=== PATIENT | male | born 1955 | race Caucasian/White ===

== ENCOUNTER 2018-08-17 09:15 | Inpatient (IN) | payer MEDICAID, OTHER, SELFPAY ==
[~2018-08-17] VITALS: Ht 180.3 cm; Wt 87.8 kg
[2018-08-17 09:43] VITALS: BP 154/76
[2018-08-17 10:02] VITALS: BP 148/73
[2018-08-17 10:30] VITALS: BP 127/65
--- NOTE | 2018-08-17 10:36 | ECGEPIP ---
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
[2018-08-17 10:40] LABS: HEMATOCRIT 20.9 % (42.0-52.0); MEAN CORPUSCULAR HEMOGLOBIN 36.8 pg (27.0-33.0); MEAN CORPUSCULAR HGB CONC 32.5 g/dl (32.0-36.5); PLATELET COUNT, AUTOMATED 155 10^3/uL (150-450); RED BLOOD COUNT 1.85 10^6/uL (4.30-6.10); WHITE BLOOD COUNT 4.6 10^3/uL (4.0-10.0)
[2018-08-17 10:43] LABS: HEMOGLOBIN 6.8 g/dl (13.5-17.5)
[2018-08-17 10:51] LABS: INR 1.09; PROTHROMBIN TIME 13.8 SECONDS (11.8-14.0)
[2018-08-17 11:00] VITALS: BP 155/72
[2018-08-17 11:03] LABS: ALBUMIN 3.7 GM/DL (3.2-5.2); ALT/SGPT 18 U/L (12-78); BILIRUBIN,DIRECT 0.1 MG/DL (0.0-0.2); BILIRUBIN,TOTAL 0.3 MG/DL (0.2-1.0); CK-MB VALUE MASS 2.3 NG/ML (<3.6); CPK CREATINE PHOSPHOKINASE 422 U/L (39-308); LIPASE 141 U/L (73-393); MB/CK RELATIVE INDEX 0.55 (< OR =4); TOTAL PROTEIN 7.6 GM/DL (6.4-8.2); TROPONIN I < 0.02 NG/ML (< 0.10)
[2018-08-17 11:14] LABS: ANISOCYTOSIS 2+; ATYPICAL LYMPH 4 % (0-5); BASOPHILS 1 % (0-4); LYMPHOCYTES 48 % (16-52); MONOCYTES 1 % (0-8); NEUTROPHILS 45 % (35-75); PLATELET ESTIMATE NORMAL (NORMAL); POIKILOCYTOSIS 2+
[2018-08-17 11:15] LABS: OVALOCYTES 1+; POLYCHROMASIA 1+; SCHISTOCYTES 1+
--- NOTE | 2018-08-17 11:21 | REP ---
Clinical: Lower chest and abdominal pain . Comparison: None . Technique: PA and lateral. Findings: The mediastinum and cardiac silhouette are normal. The lung rao are clear and without acute consolidation, effusion, or pneumothorax. The skeletal structures are intact and normal. Impression: 1. No acute cardiopulmonary process. Electronically Signed by Rasta Das MD 08/17/2018 11:11 A
--- NOTE | 2018-08-17 11:22 | REP ---
Clinical: Abdominal pain. Technique: AP, lateral, bilateral oblique and coned-down views of the lumbosacral spine. Findings: Moderate/early advanced multifocal degenerative disc osteophyte complexes are appreciated. There is a mild compression deformity involving L3 with approximately 35% loss of vertebral body height which is of indeterminate age. No prior examinations are available for comparison. Impression: Moderate/early advanced multifocal degenerative spondylosis. Compression deformity involving L3 of indeterminate age. Electronically Signed by Rasta Das MD 08/17/2018 11:13 A
[2018-08-17] MEDS: GASTROGRAFIN SOLUTION 30ML PO SCH ×2 (12:18→12:51)
[2018-08-17] MEDS ORDERED: ACETAMINOPHEN TAB 650MG DOSE (2X325MG) PO PRN (12:45)
--- NOTE | 2018-08-17 12:48 | HPEPDOC ---
[facility] Medical History & Physical Date of Admission Aug 17, 2018 Date of Service: Aug 17, 2018 History and Physical CHIEF COMPLAINT: generalized weakness, fatigue, weight loss HISTORY OF PRESENT ILLNESS: Pt is 63 y/o M with no known PMHx, does not see any PCP on a regular basis, not on any medications presented to ED due to progressively worsening generalized weakness and malaise. 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 Recently he has noticed that he is getting fatigued with less exertion than before. Denies any dyspnea associated with fatigue. Denies any chest pain or episode of syncope. Pt reports poor po intake for the last four weeks. Pt has lost weight sec to not eating well due to decreased appetite. He denies any change in BM, denies any episode of blood per rectum or hematemesis. Pt denies any Hx of cardiac, pulmonary or GI disease. Has not seen doctor for many years. ED Course: CBC reveals Hg 6, type and cross matched, receiving 2 unit PRBC transfusion. CXR unremarkable. LFT unremarkable. TSH Lipase WNL. BMP now resulted Cr 12 PAST MEDICAL HISTORY: 1. No known PMHx PAST SURGICAL HISTORY: 1. 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 REVIEW OF SYSTEMS: 10 point ROS completed negative except in HPI HOME MEDICATIONS: Please see below. PHYSICAL EXAMINATION: GENERAL APPEARANCE: Pt is AAOx3, lying in bed comfortable, no acute distress, blood transfusion ongoing HEENT: neck is supple EVAN EOMI no conjunctival erythema no JVD no trauma CARDIOVASCULAR: S1 S2 no murmur LUNGS: clear bilat no wheezing no rales ABDOMEN: soft NT ND MUSCULOSKELETAL: no LE edema EXTREMITIES: no edema no tenderness no cyanosis NEUROLOGICAL: motor sensory grossly intact PSYCHIATRIC: mood affect appropriate LABORATORY DATA: See below. IMAGING: Impression: 1. Area of irregular mucosal thickening involving the mid/distal sigmoid colon in the setting of diffuse diverticulosis as well as with subtle adjacent stranding and small lymph nodes. Differential diagnosis includes sequelae of diverticulitis as well as the possibility of underlying malignancy. 2. Diffusely heterogeneous mottled appearance throughout the osseous structures is concerning for underlying malignancy/metastatic disease. Moderate compression deformity at L3 is of uncertain chronicity. MICROBIOLOGY: Please see below. A/P 1-Symptomatic anemia Hg 6 no baseline available pt new to hospital, never seen a doctor Stool occult blood negative in ED s/p 2U PRBC in the ED likely sec to GI malignancy versus multiple myeloma Iron studies GI workup Ct of Abdomen reveals irregularity in sigmoid colon suspicious for malignancy 2-RUFINO Cr 12, high anion gap ABG pending hyponatremia likely in sec to prerenal etiologies dehydration versus underlying malignancy Nephrology service will evaluate IVF NS resuscitation monitor BMP SW/CM PT/OT DVT prophylaxis: Lovenox SC Vital Signs Vital Signs Date Time Temp Pulse Resp B/P (MAP) Pulse Ox O2 Delivery O2 Flow Rate FiO2 08/17/18 12:07 97.1 70 15 145/69 (94) 99 Room Air Laboratory Data Labs 24H Laboratory Tests 2 08/17/18 10:21: Nucleated Red Blood Cells % (auto) 1.3H, Neutrophils 45, Band Neutrophils 1, Lymphocytes (Manual) 48, Monocytes (Manual) 1, Basophils (Manual) 1, Atypical Lymphocytes 4, Platelet Estimate NORMAL, Polychromasia 1+, Poikilocytosis 2+, Anisocytosis 2+, Macrocytosis 2+, Ovalocytes 1+, Schistocytes 1+, Prothrombin Time 13.8, Prothromb Time International Ratio 1.09, Aspartate Amino Transf (AST/SGOT) 9, Alanine Aminotransferase (ALT/SGPT) 18, Alkaline Phosphatase 100, Total Bilirubin 0.3, Direct Bilirubin 0.1, Total Creatine Kinase 422H, Creatine Kinase MB 2.3, Creatine Kinase MB Relative Index 0.55, Troponin I < 0.02, Total Protein 7.6, Albumin 3.7, Albumin/Globulin Ratio 0.95L, Lipase 141, Thyroid Stimulating Hormone (TSH) 2.270 CBC/BMP Laboratory Tests 08/17/18 10:21 Red Blood Count 1.85 L, Mean Corpuscular Volume 113.0 H, Mean Corpuscular Hemoglobin 36.8 H, Mean Corpuscular Hemoglobin Concent 32.5, Red Cell Distribu tion Width 17.2 H Home Medications No Active Prescriptions or Reported Meds Allergies Coded Allergies: No Known Allergies (Unverified , 08/17/18) A-FIB/CHADSVASC A-FIB History Current/History of A-Fib/PAF?: No CHAYO ANDREWS MD Aug 17, 2018 12:48
[2018-08-17] MEDS ORDERED: ISOVUE-370 76% 100ML VIAL (Q9967) As Ordered ONE (13:01)
--- NOTE | 2018-08-17 14:00 | REP ---
Clinical: Constipation with weight loss and anemia. Technique: Axial contrast enhanced images from the lung bases to the pubic symphysis with coronal and sagittal re-formations using oral (per protocol) and 100 ml Isovue 370 intravenous contrast material. Findings: Lung bases demonstrate very minimal scarring/dependent change at the left base. Visualized heart and pericardium normal. Liver, spleen, pancreas, gallbladder, bilateral adrenal glands and kidneys are normal. Evaluation of the enteric system demonstrates area of focal mucosal thickening and irregularity involving the mid/distal sigmoid colon diffuse sigmoid diverticulitis. Subtle adjacent inflammatory stranding is appreciated along with small adjacent nonspecific lymph nodes. These findings may reflect sequelae of acute sigmoid diverticulitis, but colonoscopy may be warranted to exclude further pathology including malignancy. Remainder of the small and large bowel is grossly unremarkable. Pelvis demonstrates normal bladder and age appropriate prostate/seminal vesicles. No ascites. No intraperitoneal or retroperitoneal adenopathy. Abdominal aorta without aneurysm or dissection. Musculoskeletal structures demonstrate diffuse heterogeneity with mottling highly suspicious for underlying malignancy/metastatic disease. Compression deformity at L3 is noted and of uncertain chronicity. Impression: 1. Area of irregular mucosal thickening involving the mid/distal sigmoid colon in the setting of diffuse diverticulosis as well as with subtle adjacent stranding and small lymph nodes. Differential diagnosis includes sequelae of diverticulitis as well as the possibility of underlying malignancy. 2. Diffusely heterogeneous mottled appearance throughout the osseous structures is concerning for underlying malignancy/metastatic disease. Moderate compression deformity at L3 is of uncertain chronicity. Electronically Signed by Rasta Das MD 08/17/2018 01:51 P
[2018-08-17 14:45] LABS: BLOOD UREA NITROGEN 48 MG/DL (7-18); CALCIUM LEVEL 11.9 MG/DL (8.8-10.2); CARBON DIOXIDE LEVEL 15 MEQ/L (21-32); CHLORIDE LEVEL 103 MEQ/L (98-107); GLOMERULAR FILTRATION RATE 4.5 (>49); GLUCOSE, FASTING 92 MG/DL (70-100); SODIUM LEVEL 135 MEQ/L (136-145)
[2018-08-17 14:55] VITALS: BP 119/80
[2018-08-17 16:17] LABS: ABG BASE EXCESS -3.9 (-2.0-2.0); ABG HCO3 20.6 MEQ/L (22.0-26.0); ABG O2 SATURATION 98.6 % (95.0-99.0); ABG PARTIAL PRESSURE CO2 34.5 mmHg (35.0-45.0); ABG PARTIAL PRESSURE O2 121.6 mmHg (75.0-100.0); ABG STANDARD HCO3 21.2 MEQ/L (22.0-26.0); ABG TOTAL CO2 21.6 MEQ/L (23.0-31.0); ABG pH (ARTERIAL) 7.393 UNITS (7.350-7.450)
[2018-08-17] MEDS ORDERED: NS 1,000 ML IV ONE ×2 (17:00→18:00)
[2018-08-17 18:29] LABS: IONIZED CALCIUM 5.6 MG/DL (4.5-5.3)
--- NOTE | 2018-08-17 18:43 | CR ---
DATE OF CONSULTATION: 08/17/2018 REQUESTING PHYSICIAN: Dr. Pancho Mcclelland. CONSULTING PHYSICIAN: Dr. Jaramillo. REASON FOR CONSULTATION: Acute renal failure. CHIEF COMPLAINT: Patient presented to the emergency room today with progressive weakness, fatigue and weight loss. HISTORY OF PRESENT ILLNESS: Mr. Prosper Cobb is a 63-year-old male with no significant past medical history who has not seen a physician in many decades. 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 He presented to the emergency room today because of generalized weakness, progressive fatigue, shortness of breath on mild exertion, progressive weight loss over the last 3-4 months. He also reported intermittent cough with phlegm. Patient reported that he had decreased appetite and he was not eating much and he most often is constipated. He denies any nausea or vomiting. He denies any diarrhea. He denies any fevers or chills. Further evaluation in the emergency room showed that the patient was anemic with a hemoglobin of 6.8 and he was in acute renal failure with a creatinine of 12.2. Patient was admitted under the hospitalist service. He was started on a blood transfusion and nephrology service was called for further help in the management of this patient with acute renal failure. Patient needed my emergent attention. I saw the patient at the bedside today evening. Patient is awake and alert. He is not in any apparent distress. He was able to provide the history to me. PAST MEDICAL HISTORY: No known past medical history. He does not see any physician. PAST SURGICAL HISTORY: No significant past surgical history. ALLERGIES: No known drug allergies. 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 He smokes about 15 cigarettes a day for almost 40 years. He drinks alcohol about 2-3 beers a day. He denies any illicit drug abuse. REVIEW OF SYSTEMS: CONSTITUTIONAL: Patient reports progressive weakness. EYES: He denies any blurry vision or double vision. EARS, NOSE AND THROAT (ENT): He denies any dysphagia or odynophagia. CARDIOVASCULAR: He denies any chest pain or palpitation. RESPIRATORY: He does report off and on cough with phlegm. GASTROINTESTINAL (GI): He reports decreased appetite and constipation. GENITOURINARY: He reports decreased urine output. MUSCULOSKELETAL: He denies any muscle aches and pains. SKIN: He denies any rashes or ulcers. HEMATOLOGY/ONCOLOGY: He denies any easy bleeding or bruising or melena. CENTRAL NERVOUS SYSTEM (PRACTICE ASSISTANT): He denies any strokes or seizures. PSYCHIATRIC: He denies any depression or anxiety. ENDOCRINE: He denies any reports of hyperthyroidism, hypothyroidism or diabetes. All other review of systems is negative. PHYSICAL EXAMINATION: GENERAL: Patient is awake, alert, oriented times three, laying in bed in no apparent distress. VITAL SIGNS: Temperature is 97.4 degrees Fahrenheit, blood pressure 133/76, pulse is 71, respiratory rate of 16, saturating 100% on room air. HEAD AND NECK EXAM: Extraocular muscles intact. Pupils equally round and reactive to light. Conjunctival pallor is noted. Mucous membranes are moist. Neck is supple. There is no jugular venous distention (JVD). CARDIOVASCULAR: S1, S2. Regular rate. No edema of the bilateral lower extremities. RESPIRATORY: Chest is clear to auscultation bilaterally. Bilateral equal air entry. No rales or rhonchi. ABDOMEN: Soft. Positive bowel sounds. Nontender. No organomegaly. MUSCULOSKELETAL: No clubbing or cyanosis. Pulses are 2+. CENTRAL NERVOUS SYSTEM (PRACTICE ASSISTANT): No focal deficit. Power is 5/5 in all extremities. SKIN: No rashes or ulcers. LABORATORY REVIEW: Complete blood count (CBC) showed a WBC 4.6, hemoglobin 6.8, platelets of 155. INR is 1.09 Arterial blood gas (ABG) shows pH 7.39, pCO2 of 34, pO2 121, bicarbonate is 20, oxygen saturation is 98%. Basic metabolic panel (BMP) showed sodium 135, potassium is 4, chloride 103, bicarbonate is 15, BUN is 48, creatinine is 12.2, calcium is 11.9. TSH is 2.2. IMAGING STUDIES: CAT scan of the abdomen and pelvis was done with intravenous (IV) and oral contrast, which showed area of irregular mucosal thickening involving the mid and distal sigmoid colon in the setting of diffuse diverticulosis. Differential diagnosis includes sequela of diverticulitis as well as possible underlying malignancy. Chest x-ray showed no acute pathology. CURRENT INPATIENT MEDICATIONS: Patient got 2 units of packed red blood cells (PRBC) transfusion. He required 2 liters of IV normal saline bolus and he is getting normal saline at 150 mL an hour. ASSESSMENT: A 63-year-old male with no significant past medical history admitted this time with symptomatic anemia, acute renal failure, hypercalcemia and possible malignancy in the sigmoid colon. PLAN: 1. Acute renal failure: Patient came in with a creatinine of 12. He is anemic, volume depleted. I looked at the images on the CAT scan. Kidneys appear to be normal in size. There is no hydronephrosis. Continue the IV fluid hydration. I have ordered the urinalysis and urine electrolytes. Unsure whether patient is anemic because of renal failure or whether the renal failure is being caused by anemia and volume depletion. Patient has already been hydrated when I saw the patient; however, overnight I would just hydrate the patient and wait for his urine output. If patient starts making more urine, than most likely etiology of acute renal failure is dehydration. I could not appreciate any edema and I do not know whether patient has proteinuria are not because there is no urinalysis available. It is still pending. 2. Symptomatic anemia. Patient came in with severe anemia with a hemoglobin of 6.8. He has been given to be 2 units of PRBC transfusion. I am going to check the fecal occult blood testing as well. Patient has a possible mass in the sigmoid colon which needs to be worked up. 3. Hypercalcemia. Patient came in with a calcium of 11.9, which is highly suspicious for malignancy; however, the treatment at this point is IV hydration with normal saline. If calcium does not improve, then I would start the patient on calcitonin. Avoid use of bisphosphonates in this patient with acute renal failure. 4. High anion gap metabolic acidosis. It is secondary to acute renal failure. Bicarbonate level is 15. I am going to change the IV fluids to bicarbonate-containing fluids. 5. Possible mass in the sigmoid colon. Patient is severely anemic and he has a questionable mass in the sigmoid colon. Patient needs a gastrointestinal (GI) evaluation with colonoscopy and biopsy. Thank you for involving me involving me in the care of this patient. I shall be happy to follow the patient along with you tomorrow morning. KEYLA
[2018-08-17 18:44] LABS: FERRITIN 877 NG/ML (26-388); IRON (FE) 131 UG/DL (65-175); PERCENT SATURATION 77.5 % (19.7-50.0); PHOSPHORUS LEVEL 7.1 MG/DL (2.5-4.9); TOTAL IRON BINDING CAPACITY 169 UG/DL (250-450)
[2018-08-17] MEDS ORDERED: NS 1,000 ML IV SCH (19:00)
[2018-08-17] MEDS: SODIUM BICARBONATE 75 MEQ in NS 0.45% 1,000 ML IV SCH (19:56)
[2018-08-17 21:21] VITALS: BP 138/66
[2018-08-17 21:50] LABS: APPEARANCE, URINE CLEAR (CLEAR); BACTERIA, URINE AUTO NEGATIVE (NEGATIVE); BILIRUBIN, URINE AUTO NEGATIVE (NEGATIVE); BLOOD, URINE BLOOD 2+ (NEGATIVE); COLOR, URINE STRAW (YELLOW); GLUCOSE, URINE (UA) AUTO NEGATIVE (NEGATIVE); KETONE, URINE AUTO NEGATIVE (NEGATIVE); LEUKOCYTE ESTERASE, URINE AUTO NEGATIVE (NEGATIVE); MUCUS, URINE SMALL (NEGATIVE); NITRITE, URINE AUTO NEGATIVE (NEGATIVE); PROTEIN, URINE AUTO 1+ mg/dL (NEGATIVE); RBC, URINE AUTO 7 /HPF (0-3); SPECIFIC GRAVITY URINE AUTO 1.009 (1.002-1.035); SQUAMOUS EPITHELIAL CELL UR AU 0 /HPF (0-6); UROBILINOGEN, URINE AUTO 0.2 mg/dL (0.0-2.0); WBC, URINE AUTO 1 /HPF (0-3)
[2018-08-17 22:10] LABS: CHLORIDE,RANDOM URINE 29 MEQ/L; CREATININE,RANDOM URINE 45.1 MG/DL; POTASSIUM RANDOM URINE 5.2 MEQ/L; SODIUM,RANDOM URINE 38 MEQ/L
[2018-08-17 22:56] LABS: TOTAL PROTEIN 5.8 GM/DL (6.4-8.2)
[2018-08-18] MEDS: SODIUM BICARBONATE 75 MEQ in NS 0.45% 1,000 ML IV SCH (05:30)
[2018-08-18 06:39] LABS: HEMATOCRIT 21.6 % (42.0-52.0); HEMOGLOBIN 7.3 g/dl (13.5-17.5); MEAN CORPUSCULAR HEMOGLOBIN 34.3 pg (27.0-33.0); MEAN CORPUSCULAR HGB CONC 33.8 g/dl (32.0-36.5); MEAN CORPUSCULAR VOLUME 101.4 fl (80.0-96.0); PLATELET COUNT, AUTOMATED 119 10^3/uL (150-450); RED BLOOD COUNT 2.13 10^6/uL (4.30-6.10); WHITE BLOOD COUNT 2.8 10^3/uL (4.0-10.0)
[2018-08-18 06:45] VITALS: BP 109/62
[2018-08-18 07:02] LABS: ANISOCYTOSIS 2+; BASOPHILS 3 % (0-4); EOSINOPHILS 3 % (0-5); LYMPHOCYTES 54 % (16-52); MONOCYTES 2 % (0-8); NEUTROPHILS 38 % (35-75); OVALOCYTES 1+; PLATELET ESTIMATE NORMAL (NORMAL)
[2018-08-18 07:03] LABS: TEAR DROP CELLS 1+
[2018-08-18 07:15] LABS: ALBUMIN 2.8 GM/DL (3.2-5.2); ALT/SGPT 15 U/L (12-78); BILIRUBIN,TOTAL 0.2 MG/DL (0.2-1.0); BLOOD UREA NITROGEN 48 MG/DL (7-18); CALCIUM LEVEL 10.9 MG/DL (8.8-10.2); CARBON DIOXIDE LEVEL 19 MEQ/L (21-32); CHLORIDE LEVEL 110 MEQ/L (98-107); GLOMERULAR FILTRATION RATE 4.9 (>49); GLUCOSE, FASTING 82 MG/DL (70-100); NT-PRO BNP 4919 PG/ML (<125); POTASSIUM SERUM 4.2 MEQ/L (3.5-5.1); SODIUM LEVEL 140 MEQ/L (136-145); TOTAL PROTEIN 5.5 GM/DL (6.4-8.2)
[2018-08-18 08:00] VITALS: BP 104/58
[2018-08-18 08:06] LABS: HEPATITIS B SURFACE ANTIBODY NEGATIVE (POSITIVE)
[2018-08-18 08:07] LABS: VITAMIN B12 LEVEL 1025 PG/ML (247-911)
[2018-08-18 08:17] LABS: HEPATITIS B SURFACE ANTIGEN NEGATIVE (NEGATIVE)
[2018-08-18 08:45] LABS: HEPATITIS C VIRUS ABY INDEX 0.1 INDEX (<0.8)
[2018-08-18 08:57] LABS: CHOLESTEROL LEVEL 92 MG/DL (<200); CHOLESTEROL RISK RATIO 1.559 (<5); HDL CHOLESTEROL 59 MG/DL (>40); HEPATITIS B CORE ANTIBODY IGM NEGATIVE (NEGATIVE); LDL CHOLESTEROL 14 MG/DL (<100); NON-HDL-C 33 MG/DL; TRIGLYCERIDES LEVEL 97 MG/DL (<150)
[2018-08-18 10:13] LABS: HEMOGLOBIN A1c 5.6 %
[2018-08-18 12:00] VITALS: BP 116/63
[2018-08-18] MEDS ORDERED: LIDOCAINE 1% SDV INJ 30 ML VIAL As Ordered ONE (13:17)
[2018-08-18] MEDS ORDERED: HEPARIN SOD (PORCINE) 5000 UNITS/ML VIAL As Ordered ONE ×2 (13:17→14:29)
[2018-08-18] MEDS ORDERED: BUPIVACAINE HCL 0.5% 30 ML VIAL As Ordered ONE (13:18)
[2018-08-18] MEDS ORDERED: MIDAZOLAM INJ 2 MG/2 ML VIAL (J2250) As Ordered ONE (13:22)
[2018-08-18] MEDS ORDERED: PROPOFOL 200 MG/20 ML VIAL As Ordered ONE (13:22)
[2018-08-18] MEDS ORDERED: LIDOCAINE 2% INJ 100 MG/5 ML SDV (FOR ANES.) As Ordered ONE (13:22)
[2018-08-18] MEDS ORDERED: fentaNYL 100 MCG/2 ML INJECTION (J3010) As Ordered ONE (13:23)
[2018-08-18 13:43] LABS: COMPLEMENT C3 65 MG/DL (90-180); COMPLEMENT C4 19 MG/DL (10-40)
[2018-08-18] MEDS ORDERED: ONDANSETRON 4MG/2ML VIAL (J2405) IV PRN (15:00)
[2018-08-18] MEDS ORDERED: NS 1,000 ML IV SCH (15:00)
[2018-08-18] MEDS ORDERED: fentaNYL 100 MCG/2 ML INJECTION (J3010) IV PRN (15:00)
--- NOTE | 2018-08-18 15:16 | IPN ---
DATE: 08/18/2018 SUBJECTIVE: The patient was seen and examined at the bedside this morning. He is afebrile, hemodynamically stable. He continues to be on IV fluid hydration. He does not have much urine output. There is no significant improvement in the renal function. Creatinine is still 11.2 at this time. Hypocalcemia is slowly getting better most of the serology and labs are pending. The patient's brothers were also present at the bedside. OBJECTIVE: VITAL SIGNS: Temperature is 97.9 degrees Fahrenheit, blood pressure 104/58, pulse is 70, respiratory of 18, saturating 97% on room air. Intake and output: Urine output is not recorded. The patient had five void so far since overnight. Weight on the bed scale is not available. PHYSICAL EXAMINATION: GENERAL: The patient is awake, alert, oriented, oriented times three, laying in bed in no apparent distress. HEAD AND NECK EXAM: Pupils are equally round and reactive to light. Conjunctival pallor was noted. Mucous membranes are moist. Neck is supple. There is mildly elevated jugular venous distention (JVD). CARDIOVASCULAR: S1, S2 regular rate. No edema of the bilateral lower extremities. RESPIRATORY: Chest is clear to auscultation bilaterally. Bilateral equal good air entry. No rales or rhonchi. ABDOMEN: Soft. Positive bowel sounds. Nontender. No organomegaly. MUSCULOSKELETAL: No clubbing or cyanosis. Pulses are 2+. CENTRAL NERVOUS SYSTEM (INSTRUMENT ADJUSTER): No vocal deficit. Power is 5/5 in all extremities. SKIN: No rashes or ulcers. LABORATORY DATA: CBC showed WBC 2.8, hemoglobin 7.3, platelets of 119. Urinalysis showed 1+, protein 2+, blood. BMP showed sodium 140, potassium 4.2, chloride 110, bicarb 19, BUN 48, creatinine is 11.2, hemoglobin A1c is 5.6, calcium is 10.9 now. It was 11.9 yesterday. Iron level 131, TIBC 169, transferrin saturation is 77%, ferritin is 877, Pro-BNP is 4919, albumin is 2.8, hepatitis B serology is negative, hepatitis C is negative. CURRENT INPATIENT MEDICATIONS: The patient's medications were all reviewed by me. He was getting IV bicarb fluids, which I have stopped this morning. No other change in the medications today as compared with yesterday. ASSESSMENT/PLAN: 1. Acute renal failure: The patient's urine output is not recorded. Most likely he is oliguric. Patient has a mild proteinuria and hematuria on urinalysis. I have ordered all the proteinuria workup including RAMOS, ANCA and double-stranded DNA Ab, glomerular basement membrane antibodies, syphilis serology, Lyme titers, hepatitis B and C, SPEP and UPEP. If the results are inconclusive, patient might need a renal biopsy next week on Tuesday or Tuesday. There are no signs of renal recovery I have requested the vascular surgery to place a tunneled dialysis catheter so the patient can be dialyzed. 2. High anion gap metabolic acidosis: It is secondary to renal failure. The patient was started on IV bicarb fluids yesterday. Serum bicarb level has improved to 19 IV fluids have been stopped because the patient has a high BMP. 3. Symptomatic anemia: The patient got 2 units of packed red blood cells (PRBC) transfusion. Hemoglobin is still low at 7.3. The patient will be given a dose of Aranesp with dialysis tomorrow and he will get 1 more unit of PRBC transfusion in the morning, iron levels are adequate. 4. Hypercalcemia: The patient came in with a calcium of 11.9. He got IV fluid hydration, ionized calcium yesterday was. High serum calcium is improved to 10.9 today. I am stopping the IV fluids because of risk of fluid overload. 5. Hyperphosphatemia: It is secondary to renal failure. Phosphorus level with improve after starting dialysis. I am not starting the patient on phosphorus binders. His appetite is already low. 6. Questionable mass in the sigmoid colon The patient came in with severe anemia. However, his iron levels are adequate. The patient needs colonoscopy to rule out the possibility of malignancy. However, I do not think that CA colon has caused this patient's renal failure. MTDD
[2018-08-18 15:30] VITALS: BP 116/64
[2018-08-18 16:00] VITALS: BP 119/65
--- NOTE | 2018-08-18 16:22 | REP ---
Clinical: Perma-Cath placement. Technique: Intraoperative fluoroscopic imaging using C-arm technique. Findings: The patient is status post double lumen Perma-Cath placement in satisfactory position. Total fluoroscopic time 4 seconds. Impression: Satisfactory double lumen dialysis catheter placement. Electronically Signed by Rasta Das MD 08/18/2018 04:14 P
--- NOTE | 2018-08-18 17:33 | ROOPDOC ---
[facility] Report Of Operation Report of Operation DATE OF PROCEDURE: 08/18/2018 PREPROCEDURE DIAGNOSES: End-stage renal disease requiring access for renal replacement therapy. POSTPROCEDURE DIAGNOSES: End-stage renal disease requiring access for renal replacement therapy. PROCEDURE: Ultrasound guided right internal jugular vein cannulation. Fluoroscopic guided right internal jugular vein 19 cm tip to cuff tunneled central venous catheter insertion. ATTENDING SURGEON: DR. Lucio Martinez M.D. ZIPPER REPAIRER: None INDICATION:Patient is an 63-year-old male who presented to the emergency room and was found to have renal failure who requires access for renal replacement therapy. Patient will undergo ultrasound and fluoroscopic guided placement of a right internal jugular vein tunneled central venous catheter. The procedure was described and explained to the patient in detail including drawing of pictures demonstrating the procedure and anatomy. Risks, benefits and alternative tr eatment options were discussed with the patient. Alternative treatment options included but were not limited to no intervention. Benefits included but were not limited to access for hemodialysis until permanent access for renal replacement therapy is created. Risks included, but were not limited to infection, bleeding, pneumothorax, hemothorax, cannulation site deep venous thrombosis, possible need for open surgical intervention, allergic reaction or complication from prepping and draping materials, possible need for transfusion of blood products, anesthetic complications, cerebrovascular accident, myocardial infarction, pulmonary embolus, deep venous thrombosis, loss of limb, loss of life, poor satisfaction and poor outcome. Risks of not performing the procedure included but were not limited to inability to obtain renal replacement therapy via hemodialysis and . The patient's questions were answered. The patient voices understanding of these risks, benefits and alternative treatment options. The patient voices acceptance of the risks associated with the procedure and agrees to proceed with an ultrasound and fluoroscopic guided right internal jugular vein tunneled central venous catheter insertion. There were no promises or guarantees made to the patient regarding the outcome or results of the procedure. ANESTHESIA: Local MAC with 20 mL of 1% lidocaine mixed with 0.5% Marcaine. EBL: 20 ml. IVF: 150 ml. FLUORO TIME: 0.1 minutes. CONTRAST: None. COMPLICATIONS: None. DRAINS: None. SPECIMENS: None. IMPLANTS: Right internal jugular vein tunneled central venous catheter with use of a 19 cm tip to cuff [place] hemodialysis catheter. DESCRIPTION OF PROCEDURE: Patient was taken to the angiography suite, placed supine on the angiography room table and then prepped and draped in a standard surgical fashion. A timeout was conducted by myself and the team members in the room confirming the correct patient, procedure and laterality. Ultrasound guidance was used to cannulate the right internal jugular vein using a micropuncture needle after anesthetizing the overlying skin and subcutaneous tissue with 1% lidocaine mixed with 0.5% Marcaine. The cannulation of the right internal jugular vein was performed with real-time concurrent visualization of the entry of the micropuncture needle into the right internal jugular vein with a hardcopy image preserved. The ultrasound showed the right internal jugular vein to be widely patent, easily compressible and free of thrombus. The micropuncture wire was advanced through the micropuncture needle which was upsized to a micropuncture sheath. An Amplatz wire was advanced through the micr opuncture sheath which was then used to sequentially dilate the right internal jugular vein under fluoroscopic guidance. An introducer sheath was then placed over the Amplatz wire and the wire was removed. The catheter was tunneled through a puncture wound in the right chest after anesthetizing the overlying skin and subcutaneous tissue with 1% lidocaine mixed with 0.5% Marcaine and brought out through a puncture wound at the right internal jugular vein entry site. The catheter was then advanced through the introducer sheath which had been positioned under fluoroscopic guidance. The catheter was positioned under fluoroscopic guidance with the tip in the superior vena cava right atrial junction. Both ports of the catheter were aspirated, noted to aspirate easily and then flushed with heparinized saline. The catheter was secured to the right anterior chest wall using #2-0 Prolene suture after anesthetizing the overlying skin and subcutaneous tissue with 1% lidocaine mixed with 0.5% Marcaine. The puncture wound in the right neck was closed using #4-0 Monocryl in inverted interrupted fashion. Steri-Strips and dressings were applied. The patient tolerated the procedure well. All instrument, sponge and needle counts were correct at the end of the case. There were no complications. Dr. Martinez was present for and directed the entire case. Patient was transferred to the recovery area and subsequently to the recovery room and subsequently to the floor in stable condition. The tunneled central venous catheter is stable for use for hemodialysis access. RADIOLOGIC SUPERVISION AND INTERPRETATION: The initial ultrasound showed the right internal jugular vein to be easily compressible, widely patent and free of thrombus. Ultrasound was used to guide cannulation of the right internal jugular vein with real-time concurrent visualization of the entry of the needle into the right internal jugular vein with a hardcopy image preserved. Fluoroscopic guidance was then used to sequentially dilate the right internal jugular vein, place an introducer sheath and position the catheter with the tip in the superior vena cava/right atrial junction. Final fluoroscopic image showed the catheter to be in good position and good alignment with no pneumo- or hemothorax noted with the tip in the superior vena cava/right atrial junction. The tunneled central venous catheter is stable for use for hemodialysis access. Parker Martinez MD Aug 18, 2018 17:33
[2018-08-18 21:30] VITALS: BP 101/56
[2018-08-18 21:43] LABS: PTH INTACT 17.3 PG/ML (18.5-88.0)
[2018-08-19 01:56] VITALS: BP 111/64
[2018-08-19 06:00] VITALS: BP 112/63
--- NOTE | 2018-08-19 06:27 | IPNPDOC ---
Text Note Date of Service The patient was seen on 08/18/18. NOTE Pt denies any complaints. No dizziness no palpitations. Pt in no acute distress. Denies any rectal bleeding. general surgery consulted for sigmoid mass. PHE PHYSICAL EXAMINATION: GENERAL APPEARANCE: Pt is AAOx3, lying in bed comfortable, no acute distress, blood transfusion ongoing HEENT: neck is supple EVAN EOMI no conjunctival erythema no JVD no trauma CARDIOVASCULAR: S1 S2 no murmur LUNGS: clear bilat no wheezing no rales ABDOMEN: soft NT ND MUSCULOSKELETAL: no LE edema EXTREMITIES: no edema no tenderness no cyanosis NEUROLOGICAL: motor sensory grossly intact PSYCHIATRIC: mood affect appropriate LABORATORY DATA: See below. Vital Signs Date Time Temp Pulse Resp B/P (MAP) Pulse Ox O2 Delivery O2 Flow Rate FiO2 08/19/18 01:56 97.7 77 18 111/64 (80) 97 08/18/18 21:30 98.8 83 12 101/56 (71) 93 08/18/18 16:00 97.9 67 18 119/65 (83) 99 08/18/18 15:30 97.7 68 18 116/64 (81) 99 08/18/18 14:50 69 16 108/59 (75) 98 08/18/18 14:45 72 14 111/62 (78) 97 08/18/18 14:42 97.4 74 14 115/63 (80) 97 08/18/18 12:00 98.3 74 20 116/63 (80) 96 08/18/18 08:00 97.9 70 18 104/58 (73) 97 08/18/18 06:45 98.0 69 20 109/62 (78) 97 08/18/18 06:44 98.0 Intake & Output 08/19/18 05:59 Intake Total 2125 ml Output Total 800 ml Balance 1325 ml Laboratory Tests 08/18/18 13:02: Myeloperoxidase Antibody [Pending], Anti-Double Strand DNA (Crithidia) [Pendi ng], Glomerular Basement Membrane IgG Ab [Pending], Glomerular Base Membrane IgG (IFA) [Pending], Complement C3 65L, Complement C4 19, Syphilis Serology NONREACTIVE, Lyme Disease IgG/IgM Antibodies [Pending] Microbiology 08/18/18 Stool Occult Blood (SHREYAS) - Final, Complete IMAGING: Impression: 1. Area of irregular mucosal thickening involving the mid/distal sigmoid colon in the setting of diffuse diverticulosis as well as with subtle adjacent stranding and small lymph nodes. Differential diagnosis includes sequelae of diverticulitis as well as the possibility of underlying malignancy. 2. Diffusely heterogeneous mottled appearance throughout the osseous structures is concerning for underlying malignancy/metastatic disease. Moderate compression deformity at L3 is of uncertain chronicity. MICROBIOLOGY: Please see below. A/P 1-Symptomatic anemia Hg 6 no baseline available pt new to hospital, never seen a doctor Stool occult blood negative in ED s/p 2U PRBC in the ED likely sec to GI malignancy versus multiple myeloma Iron studies GI workup Ct of Abdomen reveals irregularity in sigmoid colon suspicious for malignancy 2-RUFINO Cr 12, high anion gap ABG metabolic acidosis hyponatremia likely sec to prerenal etiologies dehydration versus underlying malignancy leading to anemia Nephrology service recommendations appreciated IVF NS resuscitation monitor BMP 3-Sigmoid mass Surgery on board for colonoscopy SW/CM PT/OT DVT prophylaxis: Lovenox SC VS,Fishbone, I+O VS, Fishbone, I+O Vital Signs Date Time Temp Pulse Resp B/P (MAP) Pulse Ox O2 Delivery O2 Flow Rate FiO2 08/19/18 01:56 97.7 77 18 111/64 (80) 97 08/17/18 14:32 Room Air I&O- Last 24 Hours up to 6 AM 08/19/18 05:59 Intake Total 2125 ml Output Total 800 ml Balance 1325 ml CHAYO ANDREWS MD Aug 19, 2018 06:27
[2018-08-19] MEDS: NS 1,000 ML IV SCH ×2 (06:42→16:34)
[2018-08-19] MEDS ORDERED: DARBEPOETIN 100 MCG/0.5 ML *DIALYSIS* SYRINGE (J0882) IV SCH (06:45)
[2018-08-19 07:19] LABS: HEMATOCRIT 22.5 % (42.0-52.0); HEMOGLOBIN 7.5 g/dl (13.5-17.5); MEAN CORPUSCULAR HEMOGLOBIN 35.2 pg (27.0-33.0); MEAN CORPUSCULAR HGB CONC 33.3 g/dl (32.0-36.5); MEAN CORPUSCULAR VOLUME 105.6 fl (80.0-96.0); PLATELET COUNT, AUTOMATED 108 10^3/uL (150-450); RED BLOOD COUNT 2.13 10^6/uL (4.30-6.10); WHITE BLOOD COUNT 2.8 10^3/uL (4.0-10.0)
[2018-08-19 07:40] LABS: ALBUMIN 2.8 GM/DL (3.2-5.2); CALCIUM LEVEL 10.4 MG/DL (8.8-10.2); PHOSPHORUS LEVEL 7.1 MG/DL (2.5-4.9); POTASSIUM SERUM 3.9 MEQ/L (3.5-5.1)
[2018-08-19 08:05] LABS: EOSINOPHILS 3 % (0-5); LYMPHOCYTES 49 % (16-52); NEUTROPHILS 43 % (35-75); PLATELET ESTIMATE DECREASED (NORMAL)
[2018-08-19 08:06] LABS: OVALOCYTES 1+; POIKILOCYTOSIS 2+; TEAR DROP CELLS 1+
[2018-08-19 08:07] LABS: ANISOCYTOSIS 3+
[2018-08-19] MEDS: ENOXAPARIN 30 MG/0.3 ML SYR (J1650) SC SCH (09:15)
[2018-08-19 14:00] VITALS: BP 128/73
--- NOTE | 2018-08-19 14:38 | CR ---
DATE OF CONSULTATION: 08/19/2018 REASON FOR CONSULTATION: Anemia and possible colon abnormality by CT. HISTORY: Patient is a pleasant 63-year-old man who was admitted on 08/17/2018 after presenting with generalized weakness and malaise. He reports that he has been getting fatigued earlier than previously. He has not had any shortness of breath. He has not noticed any rectal bleeding. He does note that he has had some hard stools recently, but denies any melena or hematochezia. In the emergency department, he was found to be quite anemic with a hemoglobin of 7. His hematocrit was 21%. Chemistries revealed a creatinine markedly elevated to 12.2, with a BUN of 48. A CT scan of the abdomen and pelvis was done, which was interpreted by radiology as suggesting an area of irregular mucosal thickening in the mid to distal sigmoid colon with some diverticulosis. The possibility of an underlying malignancy was raised. Since admission, the patient has had an implanted dialysis catheter placed by Dr. Martinez. He was seen in consultation by Dr. Jaramillo. The patient apparently has not been seen by a physician in many years. MEDICATIONS ON ADMISSION: None. ALLERGIES: None reported. SURGICAL HISTORY: Negative. MEDICAL HISTORY: Previously is significant for smoking 1/4 pack of cigarettes per day. He had suffered a fractured collar bone in his teen years. FAMILY HISTORY: Noncontributory. PHYSICAL EXAMINATION: Reveals a pleasant man lying quietly on the hospital bed. He is alert and oriented. He is not having any pain currently. Abdomen is soft and nontender without appreciable mass. Laboratory studies today show a sodium of 141, potassium 3.9, chloride 109, CO2 of 20, BUN of 47 and a creatinine of 11. After 2 units of packed red blood cells and he received another 2 units after this test, show a white count of 2.8, hemoglobin of 8, hematocrit of 22 and a platelet count of 108,000. The patient apparently underwent hemodialysis today. IMAGING STUDIES: I reviewed patient's CT scan. I do not identify an area that concerns me, particularly regarding thickening of the bowel wall or any signs of obstruction. IMPRESSION: 1. Chronic renal failure. 2. Marked anemia, which I think is most likely related to his chronic renal failure. 3. Abnormal CT scan, but without any signs or symptoms previously of any rectal bleeding or abdominal pain. PLAN: It certainly may be prudent for the patient to have a colonoscopy at some point, but I do not believe that point is right now. He can continue with dialysis in management of his renal failure per the shade bander and receive treatment for his marked anemia. When his medical issues are stable, a colonoscopy can certainly be performed to rule out any sort of underlying colonic pathology. He does report that he has not had any prior colon cancer screening study.
--- NOTE | 2018-08-19 15:16 | IPNPDOC ---
Text Note Date of Service The patient was seen on 08/19/18. NOTE Pt was seen and examined at bedside. Pt is in no acute distress. Pt denies any change in BM, melena or rectal bleeding. Denies any bone pain. Denies any dyspnea or tachypnea. The clinical findings and plan of care was discussed with pt and family, his brother at bedside. PHYSICAL EXAMINATION: GENERAL APPEARANCE: Pt is AAOx3, lying in bed comfortable, no acute distress, blood transfusion ongoing HEENT: neck is supple EVAN EOMI no conjunctival erythema no JVD no trauma CARDIOVASCULAR: S1 S2 no murmur LUNGS: clear bilat no wheezing no rales ABDOMEN: soft NT ND MUSCULOSKELETAL: no LE edema EXTREMITIES: no edema no tenderness no cyanosis NEUROLOGICAL: motor sensory grossly intact PSYCHIATRIC: mood affect appropriate LABORATORY DATA: See below. Vital Signs Date Time Temp Pulse Resp B/P (MAP) Pulse Ox O2 Delivery O2 Flow Rate FiO2 08/19/18 06:00 98.0 80 12 112/63 (79) 97 08/19/18 01:56 97.7 77 18 111/64 (80) 97 08/18/18 21:30 98.8 83 12 101/56 (71) 93 08/18/18 16:00 97.9 67 18 119/65 (83) 99 08/18/18 15:30 97.7 68 18 116/64 (81) 99 Intake & Output 08/19/18 06:00 Intake Total 2205 ml Output Total 1400 ml Balance 805 ml Laboratory Tests 08/19/18 06:43: White Blood Count 2.8L, Red Blood Count 2.13L, Hemoglobin 7.5L, Hematocrit 22.5L, Mean Corpuscular Volume 105.6H, Mean Corpuscular Hemoglobin 35.2H, Mean Corpuscular Hemoglobin Concent 33.3, Red Cell Distribution Width 20.5H, Platelet Count 108L, Nucleated Red Blood Cells % (auto) 0.7H, Neutrophils 43, Band Neutrophils 5, Lymphocytes (Manual) 49, Eosinophils (Manual) 3, Platelet Estimate DECREASED, Poikilocytosis 2+, Anisocytosis 3+, Tear Drop Cells 1+, Ovalocytes 1+, Acanthocytes 1+, Blood Urea Nitrogen 47H, Creatinine 11.00*H, Sod ium Level 141, Potassium Level 3.9, Chloride Level 109H, Carbon Dioxide Level 20L, Anion Gap 12, Glomerular Filtration Rate 5.0L, Fasting Glucose 93, Calcium Level 10.4H, Phosphorus Level 7.1H, Albumin 2.8L Microbiology 08/18/18 Stool Occult Blood (SHREYAS) - Final, Complete Current Medications Medications (Trade) Dose Ordered Sig/Maru Route PRN Reason Start Time Stop Time Status Last Admin Dose Admin Enoxaparin Sodium (Lovenox) 30 mg DAILY SC 08/19/18 09:00 08/19/18 09:15 30 MG Sodium Chloride 1,000 ml @ 100 mls/hr Q10H IV 08/19/18 06:30 08/19/18 06:42 100 MLS/HR IMAGING: Impression: 1. Area of irregular mucosal thickening involving the mid/distal sigmoid colon in the setting of diffuse diverticulosis as well as with subtle adjacent stranding and small lymph nodes. Differential diagnosis includes sequelae of diverticulitis as well as the possibility of underlying malignancy. 2. Diffusely heterogeneous mottled appearance throughout the osseous structures is concerning for underlying malignancy/metastatic disease. Moderate compression deformity at L3 is of uncertain chronicity. MICROBIOLOGY: Please see below. A/P 1-Symptomatic anemia Hg 6 no baseline available pt new to hospital, never seen a doctor Stool occult blood negative in ED s/p 2U PRBC in the ED, 2U today on 08/19/18 likely sec to GI malignancy versus multiple myeloma versus undiagnosed progressive CKD Iron studies GI workup Ct of Abdomen reveals irregularity in sigmoid colon suspicious for malignancy, Surgery consult rules out presence of any colonic mass 2-RUFINO Cr 12, high anion gap ABG metabolic acidosis hyponatremia resolved likely sec to prerenal etiologies including dehydration versus intrinsic kidney pathologies Nephrology service recommendations appreciated IVF NS resuscitation Cont monitor BMP Pt s/p dialysis catheter placement, plan for HD today 3-Sigmoid mass Surgery service is consulted and input is appreciated 4-Electrolyte abnormality sec to RUFINO monitor BMP Ca Phos SW/CM PT/OT DVT prophylaxis: Lovenox SC VS,Fishbone, I+O VS, Fishbone, I+O Laboratory Tests 08/19/18 06:43 Red Blood Count 2.13 L, Mean Corpuscular Volume 105.6 H, Mean Corpuscular Hemoglobin 35.2 H, Mean Corpuscular Hemoglobin Concent 33.3, Red Cell Distribution Width 20.5 H, Anion Gap 12 Vital Signs Date Time Temp Pulse Resp B/P (MAP) Pulse Ox O2 Delivery O2 Flow Rate FiO2 08/19/18 06:00 98.0 80 12 112/63 (79) 97 08/17/18 14:32 Room Air I&O- Last 24 Hours up to 6 AM 08/19/18 06:00 Intake Total 2205 ml Output Total 1400 ml Balance 805 ml CHAYO ANDREWS MD Aug 19, 2018 15:16
[2018-08-19 18:41] LABS: CREATININE 24 HOUR, URINE 1060.2 MG/24HR (950-2500); CREATININE, URINE 55.8 MG/DL; TOTAL PROTEIN 24 HOUR URINE 8825.5 MG/24HR (50-150)
[2018-08-19 18:43] LABS: URINE TOTAL PROTEIN 464.5 MG/DL (0-12)
--- NOTE | 2018-08-19 20:13 | IPN ---
DATE: 08/19/2018 Mr. Cobb is seen this afternoon on his bedside. He was admitted with advanced renal failure and severe pneumonia. He had a right internal jugular vein hemodialysis catheter placed yesterday by Dr. Martinez. He had a CAT scan of abdomen and pelvis done on admission, which revealed a normal-sized kidneys without any hydronephrosis and abnormal mucosal thickening in the sigmoid colon for which he has been seen by Dr. Nagy and an elective colonoscopy has been recommended. The patient has been transfused two units of packed red blood cells prior to dialysis today. His serum creatinine was 12 on admission and BUN was 48. His kidney function did not improve with intravenous (IV) fluid hydration. A decision for dialysis was made and patient had his first hemodialysis today. He received two more units of packed red blood cells during dialysis today. At this time, patient is feeling better and denies any dyspnea, chest pain, nausea or vomiting. He denies any rectal bleeding or black colored stool in the history. PHYSICAL EXAMINATION: Temperature is 99 degrees Fahrenheit, heart rate 74 per minute and respiratory rate 18 per minute. Blood pressure 128/73 mmHg and oxygen saturation 97% on room air. His head is atraumatic. Ears, nose and throat are unremarkable. Oral mucosa is moist and healthy. Neck is supple and without jugular venous distention (JVD) or thyroid enlargement. A dialysis catheter is present in right internal jugular vein without any signs of infection or bleeding at the exit site. His heart sounds are regular. Lungs clear to auscultation. Abdomen is soft and nontender and without a palpable organomegaly. Bowel sounds are normal. Extremities have no cyanosis or clubbing. Neurologically, he is awake, alert and oriented times three. Today's labs show sodium 141, potassium 3.9, CO2 20, BUN 47 and creatinine 11.0. Calcium level is 10.4 and phosphorus 7.1. Hemoglobin 7.5 and hematocrit 22.5. WBC count 2.8 and platelets 108,000. Urinalysis showed 1+ protein and 2+ blood. PROBLEMS: 1. Renal failure, most likely mostly chronic. Patient had his first hemodialysis this morning, which he tolerated very well. We will plan his next dialysis on Tuesday or Tuesday. At present, there is no emergent need for further dialysis tomorrow. 2. Metabolic acidosis. His acidosis had already improved and today's dialysis is likely to have corrected it completely. His chemistry will be checked again tomorrow morning. 3. Anemia. Patient had severe anemia on admission, without any iron deficiency. I do not feel that he has anemia due to colon mass. His anemia is most likely to be related to advanced renal failure in view of normal iron studies. Patient will receive Aranesp with dialysis. 4. Etiology of renal failure. At this point, no obvious etiology known. He does have serum protein electrophoresis pending, which was sent in view of hypercalcemia and mild proteinuria. I have discussed with the patient and his son on the bedside about potential need for a diagnostic kidney biopsy. Once he is well dialyzed and risk of bleeding is minimized, then we will consider a diagnostic kidney biopsy next week. 5. Possible colon mass. The patient seems to have normal iron studies and I suspect that gastrointestinal (GI) blood loss is not the cause of his anemia. He should certainly have a colonoscopy at some point to rule out any possibility of malignancy. 6. Pancytopenia. Pt. seems to have pancytopenia and will need to be monitored closely. I do not feel that renal failure is the cause of his pancytopenia. MTDD
[2018-08-19 22:00] VITALS: BP 121/61
[2018-08-20] VITALS (8 sets, daily range): BP systolic 114–120; BP diastolic 60–66
[2018-08-20 06:58] LABS: HEMATOCRIT 25.4 % (42.0-52.0); HEMOGLOBIN 8.7 g/dl (13.5-17.5); MEAN CORPUSCULAR HEMOGLOBIN 34.5 pg (27.0-33.0); MEAN CORPUSCULAR HGB CONC 34.3 g/dl (32.0-36.5); MEAN CORPUSCULAR VOLUME 100.8 fl (80.0-96.0); PLATELET COUNT, AUTOMATED 101 10^3/uL (150-450); RED BLOOD COUNT 2.52 10^6/uL (4.30-6.10); WHITE BLOOD COUNT 2.5 10^3/uL (4.0-10.0)
[2018-08-20 07:29] LABS: CALCIUM LEVEL 10.1 MG/DL (8.8-10.2); CREATININE FOR GFR 7.27 MG/DL (0.70-1.30); GLOMERULAR FILTRATION RATE 8.1 (>49); PHOSPHORUS LEVEL 4.7 MG/DL (2.5-4.9); POTASSIUM SERUM 3.9 MEQ/L (3.5-5.1)
[2018-08-20] MEDS: ENOXAPARIN 30 MG/0.3 ML SYR (J1650) SC SCH ×2 (09:20→09:21)
--- NOTE | 2018-08-20 15:31 | IPN ---
DATE: 08/20/2018 Mr. Cobb is seen this morning on his bedside. He is feeling well and denies any complaints. He is stronger and not short of breath anymore. He is able to ambulate. Patient denies any nausea or vomiting. He was dialyzed yesterday, which he tolerated very well. PHYSICAL EXAMINATION: Temperature 98.2 degrees Fahrenheit, heart rate 76 per minute and respiratory rate 16 per minute. Blood pressure 117/64 mmHg and oxygen saturation 95% on room air. Head is atraumatic. Neck is supple and without jugular venous distention (JVD) or thyroid enlargement. Heart sounds are regular. Lungs clear to auscultation. Abdomen soft and nontender and bowel sounds are normal. Extremities have no cyanosis or clubbing. Neurologically he is awake, alert and oriented times three. Today's labs show WBC count 2.5, hemoglobin 8.7 and hematocrit 25.4. Platelets are 101,000. Sodium 140, potassium 3.9, CO2 25, BUN 25 and creatinine 7.27. Calcium level is 10.1 and phosphorus 4.7. PROBLEMS: 1. Renal failure. Most likely the patient has chronic renal failure, but no certain etiology is obvious at this time. He does not have any history of diabetes or hypertension. He only had mild proteinuria and microscopic hematuria. Does not seem to have any acute glomerulonephritis. I have discussed with him about potential need for biopsy as his kidneys look normal size on the CT scan. We will schedule a diagnostic kidney biopsy in next couple of days. The patient agreed and he is willing to proceed. 2. Metabolic acidosis. Patient has been dialyzed and metabolic acidosis has improved. No intervention is indicated at this point. 3. Hypercalcemia. His calcium level has also corrected today and we will continue to monitor without any intervention. 4. Anemia. Patient presented with severe anemia and has been transfused with 4 units of packed red blood cells so far. His anemia has improved significantly. At this point, we will hold off on further transfusion. 5. Pancytopenia. The patient has leukopenia and thrombocytopenia in addition to severe anemia. His iron studies were normal, so I do not feel that he has gastrointestinal (GI) bleeding as cause of anemia. At this point, we will watch and see how he does. I would like to wait for biopsy until his platelets improve. At this point, he will have risk of excessive bleeding with thrombocytopenia.
--- NOTE | 2018-08-20 23:21 | IPNPDOC ---
Text Note Date of Service The patient was seen on 08/20/18. NOTE Pt was seen and examined at bedside. Pt is in no acute distress. Pt denies any change in BM, melena or rectal bleeding. Denies any bone pain. Denies any dyspnea or tachypnea. The clinical findings and plan of care was discussed with pt and family, his brother at bedside. Pt is comfortable in bed. No acute complaints post hemodialysis. PHYSICAL EXAMINATION: GENERAL APPEARANCE: Pt is AAOx3, lying in bed comfortable, no acute distress, blood transfusion ongoing HEENT: neck is supple EVAN EOMI no conjunctival erythema no JVD no trauma CARDIOVASCULAR: S1 S2 no murmur LUNGS: clear bilat no wheezing no rales ABDOMEN: soft NT ND MUSCULOSKELETAL: no LE edema EXTREMITIES: no edema no tenderness no cyanosis NEUROLOGICAL: motor sensory grossly intact PSYCHIATRIC: mood affect appropriate LABORATORY DATA: See below. Vital Signs Date Time Temp Pulse Resp B/P (MAP) Pulse Ox O2 Delivery O2 Flow Rate FiO2 08/20/18 20:38 98.9 82 20 114/62 (79) 94 08/20/18 20:37 98.9 08/20/18 18:00 98.5 83 18 120/65 (83) 85 08/20/18 14:10 89 95 08/20/18 14:00 98.8 85 17 114/60 (78) 95 08/20/18 10:00 98.3 75 18 120/66 (84) 96 08/20/18 06:24 98.2 79 117/64 (81) 96 08/20/18 06:00 98.2 77 17 117/64 (81) 95 08/20/18 02:07 78 119/64 (82) 95 08/20/18 02:06 98.3 08/20/18 02:00 98.3 78 16 119/64 (82) 95 Intake & Output 08/20/18 06:00 Intake Total 2300 ml Output Total 1150 ml Balance 1150 ml Laboratory Tests 08/20/18 06:30: White Blood Count 2.5L, Red Blood Count 2.52L, Hemoglobin 8.7L, Hematocrit 25.4 L, Mean Corpuscular Volume 100.8H, Mean Corpuscular Hemoglobin 34.5H, Mean Corpuscular Hemoglobin Concent 34.3, Red Cell Distribution Width 22.0H, Platelet Count 101L, Nucleated Red Blood Cells % (auto) 0.8H, Blood Urea Nitrogen 25H, Creatinine 7.27H, Sodium Level 140, Potassium Level 3.9, Chloride Level 107, Carbon Dioxide Level 25, Calcium Level 10.1, Anion Gap 8, Glomerular Filtration Rate 8.1L, Fasting Glucose 89, Phosphorus Level 4.7# Microbiology 08/18/18 Stool Occult Blood (SHREAYS) - Final, Complete Current Medications Medications (Trade) Dose Ordered Sig/Maru Route PRN Reason Start Time Stop Time Status Last Admin Dose Admin Enoxaparin Sodium (Lovenox) 30 mg DAILY SC 08/19/18 09:00 08/20/18 09:21 30 MG IMAGING: Impression: 1. Area of irregular mucosal thickening involving the mid/distal sigmoid colon in the setting of diffuse diverticulosis as well as with subtle adjacent stranding and small lymph nodes. Differential diagnosis includes sequelae of diverticulitis as well as the possibility of underlying malignancy. 2. Diffusely heterogeneous mottled appearance throughout the osseous structures is concerning for underlying malignancy/metastatic disease. Moderate compression deformity at L3 is of uncertain chronicity. MICROBIOLOGY: Please see below. A/P 1-Symptomatic anemia Hg 6 no baseline available pt new to hospital, never seen a doctor Stool occult blood negative in ED s/p 2U PRBC in the ED, 2U on 08/19/18 likely sec to GI malignancy versus multiple myeloma versus undiagnosed progressive CKD Iron studies GI workup Ct of Abdomen reveals irregularity in sigmoid colon suspicious for malignancy, Surgery consult rules out presence of any colonic mass recommends outpt colonoscopy 2-RUFINO Cr 12, high anion gap ABG metabolic acidosis, resolved hyponatremia resolved s/p hemodialysis likely sec to prerenal etiologies including dehydration versus intrinsic kidney pathologies Nephrology service recommendations appreciated IVF NS resuscitation Cont monitor BMP Pt s/p dialysis catheter placement 3-Sigmoid mass Surgery service is consulted and input is appreciated 4-Electrolyte abnormality sec to RUFINO monitor BMP Ca Phos SW/CM PT/OT DVT prophylaxis: Lovenox SC VS,Fishbone, I+O VS, Fishbone, I+O Laboratory Tests 08/20/18 06:30 Red Blood Count 2.52 L, Mean Corpuscular Volume 100.8 H, Mean Corpuscular Hemoglobin 34.5 H, Mean Corpuscular Hemoglobin Concent 34.3, Red Cell Distribution Width 22.0 H, Calcium Level 10.1 Vital Signs Date Time Temp Pulse Resp B/P (MAP) Pulse Ox O2 Delivery O2 Flow Rate FiO2 08/20/18 20:38 98.9 82 20 114/62 (79) 94 08/17/18 14:32 Room Air I&O- Last 24 Hours up to 6 AM 08/20/18 06:00 Intake Total 2300 ml Output Total 1150 ml Balance 1150 ml CHAYO ANDREWS MD Aug 20, 2018 23:21
[2018-08-21 06:46] VITALS: BP 116/63
[2018-08-21 09:08] LABS: HEMATOCRIT 26.7 % (42.0-52.0); HEMOGLOBIN 8.8 g/dl (13.5-17.5); MEAN CORPUSCULAR HEMOGLOBIN 32.8 pg (27.0-33.0); MEAN CORPUSCULAR VOLUME 99.6 fl (80.0-96.0); PLATELET COUNT, AUTOMATED 103 10^3/uL (150-450); RED BLOOD COUNT 2.68 10^6/uL (4.30-6.10); WHITE BLOOD COUNT 2.9 10^3/uL (4.0-10.0)
[2018-08-21] MEDS ORDERED: HEPARIN 1,000 UNITS/ML 10ML VIAL (FOR RADIOLOGY& DIALYSIS ONLY) IV ONE (09:15)
[2018-08-21 09:31] LABS: ALBUMIN 2.9 GM/DL (3.2-5.2); CALCIUM LEVEL 10.3 MG/DL (8.8-10.2); CREATININE FOR GFR 8.17 MG/DL (0.70-1.30); GLOMERULAR FILTRATION RATE 7.1 (>49); PHOSPHORUS LEVEL 4.5 MG/DL (2.5-4.9); POTASSIUM SERUM 4.1 MEQ/L (3.5-5.1)
[2018-08-21] MEDS: ENOXAPARIN 30 MG/0.3 ML SYR (J1650) SC SCH (09:35)
--- NOTE | 2018-08-21 10:12 | IPN ---
DATE OF VISIT: 08/21/2018 Mr. Cobb is seen this morning on his bedside. He is feeling well and denies any complaints at present. He was dialyzed on Tuesday, which he tolerated well. The patient denies any dyspnea, chest pain, nausea, vomiting, or abdominal pain. I have reviewed all his labs and imaging studies so far. He did have abnormal CAT scan on admission which showed diffusely heterogeneous-appearance of bones with suspected malignancy. He did have hypercalcemia, which did improve with dialysis. His kidney function did not improve, and etiology of his renal failure is still uncertain. I have discussed with him about potential need for a kidney biopsy; however, he also has developed thrombocytopenia due to which I have some concerns. PHYSICAL EXAM: The patient is awake and alert and without any acute distress. Temperature 98.3 degrees Fahrenheit, heart rate 80 per minute, and respiratory rate 18 per minute. Blood pressure 116/63 mmHg, and oxygen saturation 97%. Head is atraumatic. Neck is supple and without jugular venous distention (JVD) or thyroid enlargement. Perma-Cath is present in right internal jugular vein. Heart sounds are regular with a systolic murmur but no pericardial friction rub. Lungs sound clear to auscultation. Abdomen soft and nontender and without a palpable organomegaly. Bowel sounds are normal. Extremities without any cyanosis or clubbing. Skin has no rash or ulcers. Neurologically, he is awake, alert and oriented times three. Today's labs show WBC count 2.9, hemoglobin 8.8, hematocrit 26.7, and platelets 103,000. Sodium 142, potassium 4.1, CO2 26, BUN 26, and creatinine 8.17. Calcium level is 10.3 and phosphorus 4.5. PROBLEMS: 1. Renal failure. I am not certain if his renal failure is acute or chronic. He did not have any improvement in his kidney function and, at present, there is no obvious etiology of his renal failure. At some point, a kidney biopsy will be considered once his condition is optimized. The patient will be dialyzed again today. 2. Pancytopenia. His anemia improved following transfusion; however, leukopenia and thrombocytopenia persist. I have discussed with the hospitalist and have recommended hematology consultation for possible bone marrow biopsy. There is a suspicion for multiple myeloma causing hypercalcemia and renal failure, in which case bone marrow biopsy is going to be very helpful to make a definitive diagnosis. 3. Anemia. Anemia has improved following transfusion, and we will continue to watch closely. At this point, there is no emergent indication for a transfusion. A hematology consultation is going to be requested.
--- NOTE | 2018-08-21 12:26 | IPNPDOC ---
Text Note Date of Service The patient was seen on 08/21/18. NOTE Pt was seen and examined at bedside. Pt is comfortably lying in bed, no acute distress. Denies any dizziness or palpitations. Denies any bone pain, generally has improved. PHYSICAL EXAMINATION: GENERAL APPEARANCE: Pt is AAOx3, lying in bed comfortable, no acute distress, blood transfusion ongoing HEENT: neck is supple EVAN EOMI no conjunctival erythema no JVD no trauma CARDIOVASCULAR: S1 S2 no murmur LUNGS: clear bilat no wheezing no rales ABDOMEN: soft NT ND MUSCULOSKELETAL: no LE edema EXTREMITIES: no edema no tenderness no cyanosis NEUROLOGICAL: motor sensory grossly intact PSYCHIATRIC: mood affect appropriate LABORATORY DATA: See below. Vital Signs Date Time Temp Pulse Resp B/P (MAP) Pulse Ox O2 Delivery O2 Flow Rate FiO2 08/20/18 20:38 98.9 82 20 114/62 (79) 94 08/20/18 20:37 98.9 08/20/18 18:00 98.5 83 18 120/65 (83) 85 08/20/18 14:10 89 95 08/20/18 14:00 98.8 85 17 114/60 (78) 95 08/20/18 10:00 98.3 75 18 120/66 (84) 96 08/20/18 06:24 98.2 79 117/64 (81) 96 08/20/18 06:00 98.2 77 17 117/64 (81) 95 08/20/18 02:07 78 119/64 (82) 95 08/20/18 02:06 98.3 08/20/18 02:00 98.3 78 16 119/64 (82) 95 Intake & Output 08/20/18 06:00 Intake Total 2300 ml Output Total 1150 ml Balance 1150 ml Laboratory Tests 08/20/18 06:30: White Blood Count 2.5L, Red Blood Count 2.52L, Hemoglobin 8.7L, Hematocrit 25.4L, Mean Corpuscular Volume 100.8H, Mean Corpuscular Hemoglobin 34.5H, Mean Corpuscular Hemoglobin Concent 34.3, Red Cell Distribution Width 22.0H, Platelet Count 101L, Nucleated Red Blood Cells % (auto) 0.8H, Blood Urea Nitrogen 25H, Creatinine 7.27H, Sodium Level 140, Potassium Level 3.9, Chloride Level 107, Carbon Dioxide Level 25, Calcium Level 10.1, Anion Gap 8, Glomerular Filtration Rate 8.1L, Fasting Glucose 89, Phosphorus Level 4.7# Microbiology 08/18/18 Stool Occult Blood (SHREYAS) - Final, Complete Current Medications Medications (Trade) Dose Ordered Sig/Maru Route PRN Reason Start Time Stop Time Status Last Admin Dose Admin Enoxaparin Sodium (Lovenox) 30 mg DAILY SC 08/19/18 09:00 08/20/18 09:21 30 MG IMAGING: Impression: 1. Area of irregular mucosal thickening involving the mid/distal sigmoid colon in the setting of diffuse diverticulosis as well as with subtle adjacent stranding and small lymph nodes. Differential diagnosis includes sequelae of diverticulitis as well as the possibility of underlying malignancy. 2. Diffusely heterogeneous mottled appearance throughout the osseous structures is concerning for underlying malignancy/metastatic disease. Moderate compression deformity at L3 is of uncertain chronicity. MICROBIOLOGY: Please see below. A/P 1-Symptomatic anemia Hg 6 no baseline available pt new to hospital, never seen a doctor Stool occult blood negative in ED s/p 2U PRBC in the ED, 2U on 08/19/18 likely sec to GI malignancy versus multiple myeloma versus undiagnosed progressive CKD Iron studies GI workup Ct of Abdomen reveals irregularity in sigmoid colon suspicious for malignancy, Surgery consult rules out presence of any colonic mass recommends outpt c olonoscopy 2-RUFINO Cr 12, high anion gap ABG metabolic acidosis, resolved hyponatremia resolved s/p hemodialysis likely sec to prerenal etiologies including dehydration versus intrinsic kidney pathologies Nephrology service recommendations appreciated IVF NS resuscitation Cont monitor BMP Pt s/p dialysis catheter placement 3-Sigmoid mass Surgery service is consulted and input is appreciated 4-Electrolyte abnormality sec to RUFINO monitor BMP Ca Phos SW/CM PT/OT DVT prophylaxis: Lovenox SC VS,Fishbone, I+O VS, Fishbone, I+O Laboratory Tests 08/21/18 08:49 Red Blood Count 2.68 L, Mean Corpuscular Volume 99.6 H, Mean Corpuscular Hemoglobin 32.8, Mean Corpuscular Hemoglobin Concent 33.0, Red Cell Distribution Width 21.2 H, Anion Gap 8 Vital Signs Date Time Temp Pulse Resp B/P (MAP) Pulse Ox O2 Delivery O2 Flow Rate FiO2 08/21/18 06:46 98.3 81 20 116/63 (80) 97 08/17/18 14:32 Room Air I&O- Last 24 Hours up to 6 AM 08/21/18 06:00 Intake Total 2520 ml Output Total 1050 ml Balance 1470 ml CHAYO ANDREWS MD Aug 21, 2018 12:26
[2018-08-21 13:58] VITALS: BP 115/63
[2018-08-21] MEDS ORDERED: POTASSIUM CHLORIDE 10 MEQ SR TABLET PO ONE (14:00)
--- NOTE | 2018-08-21 14:08 | CR ---
DATE OF CONSULTATION: 08/21/2018 REASON FOR CONSULTATION: Anemia, pancytopenia. 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 The patient had been working on a few jobs, had gotten somewhat dehydrated and began to end up with generalized weakness, fatigue, shortness of breath, and states that he has lost about 20 pounds over the past 3-4 months. He has had a period of 12 weeks with constipation that is no longer present and says that it has returned to normal stool. He has had a decreased appetite, lives on his own, does not prepare his meals, and has not noticed any change in the color or the caliber of his stool but states that the constipation was a major problem for about 12 weeks. He did little to alleviate the constipation as far as medications. He has had no abdominal pain. No nausea. No vomiting and no diarrhea. He has not noticed any bright red blood per rectum. He was admitted through the emergency room and was found to have a hemoglobin of approximately 6, 6.5 and was in acute renal failure with a creatinine of approximately 12. The patient has no real past medical history. He has had no past surgical history. He was currently on no medications. He has no known drug allergies. 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 Smokes about anywhere from three-quarters of a pack to a pack of cigarettes a day. He has been doing that for about 40 years. He states he has at least a beer a day after work and sometimes on the weekends, on Tuesday he may have up to a six-pack. The patient has also been for the past 39 years. FAMILY HISTORY: His father at the age of 84 due to motor vehicle accident, where the patient himself was a passenger. His mother of breast cancer at the age of 65. He has three brothers who are all healthy. REVIEW OF SYSTEMS: He does not wear any corrective lenses. He has progressive weakness. No blurring. No problems swallowing, chest pain, palpitation, heartburn. GI: Noted above in HPI. : Decreased urine over the past couple of days. He denies any muscle cramping at night. Has had no rashes. Denies any bleeding. Denies any depression, anxiety. He has had no history of any slow thyroid, diabetes in the family or in himself. PHYSICAL EXAMINATION: The patient just returned from a dialysis session. His ECOG is 1/4. His weight is 90.1 kg. Height is 180 cm. BSA is 2.14. BMI is 27.7. Temperature is 98.3. Pulse is 81. Respiratory rate is 20. BP is 116/63. His pulse oximetry is 97. His HEENT is normocephalic, atraumatic. PERRL. He has bilateral neto orbicular swelling. His oropharynx is otherwise clear. He has missing teeth both lateral canines incisors, bicuspids and is mal dentition on the lower jaw. No signs of any thrush or oral lesions. No buccal mucosa lesions. No ecchymosis. No thrush. Neck is supple. He has no palpable adenopathy. In the right upper chest area, he has a dialysis catheter in place. He has no signs of any adenopathy. Chest: Decreased breath sounds at the bases. Cardiovascular: S1 and S2 appreciated. Abdomen shows no signs of any ascites. No hepatosplenomegaly. His extremities show no cyanosis, no clubbing or any edema. Neurological examination: Cranial nerves II-XII are intact. No focal or motor deficit. Cerebellar functions are intact. Laboratories show a WBC count of 4.6 on admission, hemoglobin of 6.8 over hematocrit 20.9, RDW of 17.2, platelet count of 155, and he has neutrophils of 45. Lymphocytes are 48. He has 1+ polychromasia, 2+ macrocytosis, 1+ schistocytes, 2+ anisocytosis. Post transfusion hemoglobin is 8.8 today with a WBC count of 2.9, RDW of 21.2, platelet count of 103,000. Differential shows 43 segs, 49% lymphs. Chemistry: He has a sodium of 142, potassium of 4.1, chloride of 108, CO2 of 26, BUN of 26, creatinine of 12, now down 8.17 post dialysis. GFR is 7.1, calcium is 10.3, calcium was 7.1, now is down to 4.5. He had an albumin of 2.8, now down to 2.1. Urine showed specific gravity of 1.009. Urine protein is 8825 or 8 grams. His hepatitis B and surface antigen is otherwise negative. Hepatitis C and index is negative. 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 Chest x-ray showed a no acute pulmonary process. CT scan of the abdomen and pelvis showed an area of irregular mucosal thickening involving the mid/distal sigmoid colon in the setting of diffuse diverticulosis as well as with subtle adjacent stranding in lymph nodes. The differential diagnosis includes sequelae of diverticulitis as well as the possibility of an underlying malignancy, diffuse heterogeneous mild appearance throughout the osseous structures is concerning for underlying malignancy of metastatic disease, moderate compression fracture at L3 of uncertain chronicity. ASSESSMENT: 1. At this time is anemia with normal WBC and differential on admission now with pancytopenia post dialysis with likely iron deficiency. 2. Thickening of the sigmoid colon concerning for malignancy. 3. Renal insufficiency. PLAN: I have advised the patient that he would need to have a full colonoscopy, but this will have to wait until after he is stabilized from a kidney perspective. I have ordered a serum CEA level looking for a primary GI malignancy. The mottled appearance of the bones may simply be in response to blood loss with brisk hematopoiesis as a erythrocyte response with erythroid hyperplasia of the marrow, or could be an underlying plasma cell disorder although no lytic lesions were noted. I have ordered a serum protein electrophoresis, quantitative immunoglobulins for serum free light chain assay as well as a CEA level. I will be happy to follow this patient with you during his clinical course I will be out of the office on August 24 of this week and Dr Sayra meraz will be carbon cleaner those days if assistance is needed . The plan is to continue ongoing dialysis, to give the patient RBCs in order to maintain a good hemoglobin as the oncotic pressure of blood will exceed that of normal IV hydration. Although, IV hydration in addition certainly could be helpful depending upon the patient's fluid tolerance in acute renal failure setting. A bone marrow biopsy will be done if the patient shows elevations of the serum free light chains or quantitative immunoglobulins. However, it is more than likely that he has volume depletion from blood and acute renal failure from acute volume loss as well. I would be more than happy to follow this patient along with you. Thank you for your consultation and the confidence in this consultation. Addendum : LAB Quantitative Immunoglobulins are within normal limits Free light chains are pending MTDD
[2018-08-21 14:35] LABS: IMMUNOGLOBULIN G 180 MG/DL (681-1648)
[2018-08-21 15:16] LABS: IMMUNOGLOBULIN A 15.8 MG/DL (70-400)
[2018-08-21 15:27] LABS: IMMUNOGLOBULIN M < 5.3 MG/DL (40-230)
[2018-08-21 17:55] VITALS: BP 112/61
[2018-08-21 20:31] VITALS: BP 92/51
[2018-08-22 02:04] VITALS: BP 112/64
[2018-08-22 06:46] VITALS: BP 107/48
[2018-08-22 08:09] LABS: HEMATOCRIT 25.5 % (42.0-52.0); HEMOGLOBIN 8.4 g/dl (13.5-17.5); MEAN CORPUSCULAR HEMOGLOBIN 33.1 pg (27.0-33.0); MEAN CORPUSCULAR HGB CONC 32.9 g/dl (32.0-36.5); MEAN CORPUSCULAR VOLUME 100.4 fl (80.0-96.0); PLATELET COUNT, AUTOMATED 102 10^3/uL (150-450); RED BLOOD COUNT 2.54 10^6/uL (4.30-6.10); WHITE BLOOD COUNT 2.2 10^3/uL (4.0-10.0)
--- NOTE | 2018-08-22 08:17 | IPNPDOC ---
Date Seen The patient was seen on 08/22/18. Progress Note SUBJECTIVE: The patinet had dialysis yesterday feeling better , looks less rasheed today no signs of rectal bleed or tarry stools no hematuria noted OBJECTIVE PHYSICAL EXAMINATION: VITAL SIGNS: Please see below. GENERAL: [NC AT Perrl eomi sclera white non icteric Christa clear ] HEENT: n o jaundice noted neck supple CARDIOVASCULAR: S1 S2 appreciated no murmurs . RESPIRATORY: [clear to A&P]. ABDOMINAL: [ soft non tender no HSM ] EXTREMITIES: [no cce ] NEUROLOGICAL: [intact no numbness noted ] PSYCHOLOGICAL: [ intact ] skin no hematomas dialysis catheter site intact LABORATORY DATA, IMAGING STUDIES, MICROBIOLOGY: Please see below. Laboratory Tests 08/21/18 08:49 Red Blood Count 2.68 L, Mean Corpuscular Volume 99.6 H, Mean Corpuscular Hemoglobin 32.8, Mean Corpuscular Hemoglobin Concent 33.0, Red Cell Distribution Width 21.2 H, Anion Gap 8 08/22/18 07:42 Red Blood Count 2.54 L, Mean Corpuscular Volume 100.4 H, Mean Corpuscular Hemoglobin 33.1 H, Mean Corpuscular Hemoglobin Concent 32.9, Red Cell Distribution Width 20.8 H Echocardiogram: . DVT prophylaxis ordered?: ASSESSMENT AND PLAN: iron deficiency anemia Low WBC likely temporary colon thickening suspicious for a malignancy acute renal failure plan labs just drawn this am will fu labs maintain Hgb @ 9 assess creatinine daily VS, I&O, 24H, Fishbone Vital Signs/I&O Date: 08/22/18, Adjusted Body Weight: Kg Vital Signs Date Time Temp Pulse Resp B/P (MAP) Pulse Ox O2 Delivery O2 Flow Rate FiO2 08/22/18 06:46 98.0 76 20 107/48 (67) 93 08/17/18 14:32 Room Air I&O- Last 24 Hours up to 6 AM 08/22/18 06:00 Intake Total 1520 ml Output Total 1900 ml Balance -380 ml Laboratory Data 24H LABS Laboratory Tests 2 08/21/18 08:49: Nucleated Red Blood Cells % (auto) 0.7H, Blood Urea Nitrogen 26H, Creatinine 8.17*H, Sodium Level 142, Potassium Level 4.1, Chloride Level 108H, Carbon Dioxide Level 26, Anion Gap 8, Glomerular Filtration Rate 7.1L, Calcium Level 10.3H, Phosphorus Level 4.5, Albumin 2.9L 08/21/18 13:12: Reticulocyte # (auto) 29.4, Percent Reticulocyte Count 1.1, Reticulocyte Hemoglobin Equivalent 41.8H, Total Protein (PEP) 6.1L, Immunoglobulin A 15.8L, Immunoglobulin G 180L, Immunoglobulin M < 5.3L 08/22/18 07:42: Nucleated Red Blood Cells % (auto) 1.3H CBC/BMP Laboratory Tests 08/21/18 08:49 Red Blood Count 2.68 L, Mean Corpuscular Volume 99.6 H, Mean Corpuscular Hemoglobin 32.8, Mean Corpuscular Hemoglobin Concent 33.0, Red Cell Distribution Width 21.2 H, Anion Gap 8 08/22/18 07:42 Red Blood Count 2.54 L, Mean Corpuscular Volume 100.4 H, Mean Corpuscular Hemoglobin 33.1 H, Mean Corpuscular Hemoglobin Concent 32.9, Red Cell Distribution Width 20.8 H Microbiology Microbiology 08/18/18 Stool Occult Blood (SHREYAS) - Final, Complete Janae Dai MD Aug 22, 2018 08:17
[2018-08-22 08:35] LABS: ATYPICAL LYMPH 1 % (0-5); BASOPHILS 1 % (0-4); EOSINOPHILS 1 % (0-5); LYMPHOCYTES 45 % (16-52); MONOCYTES 3 % (0-8); NEUTROPHILS 49 % (35-75)
[2018-08-22 08:36] LABS: ANISOCYTOSIS 1+; OVALOCYTES 1+; POIKILOCYTOSIS 1+; POLYCHROMASIA 1+
[2018-08-22 08:37] LABS: SCHISTOCYTES 1+; TEAR DROP CELLS 1+
[2018-08-22 10:00] VITALS: BP 106/49
[2018-08-22] MEDS: ENOXAPARIN 30 MG/0.3 ML SYR (J1650) SC SCH (10:02)
--- NOTE | 2018-08-22 12:02 | IPNPDOC ---
Date Seen The patient was seen on 08/22/18. Progress Note SUBJECTIVE: 63 Y male, without significant PMH, did not see doctor in many presents with general weakness and weight loss found to be in severe anemia and renal failure now is no HD feeling better no events overnight Reviews of systems no fever no chills no chest pain no abdominal pain no diarrhea no black stool OBJECTIVE PHYSICAL EXAMINATION: VITAL SIGNS: Please see below. GENERAL: AA Ox3, lying in the bed, comfortable and not in acute distress HEENT: atraumatic CARDIOVASCULAR: S1 S2 regular no murmur RESPIRATORY: clear, no rales no wheezing ABDOMINAL: soft BS +non tender EXTREMITIES: no edema NEUROLOGICAL: non focal PSYCHOLOGICAL: no acute psychosis LABORATORY DATA, IMAGING STUDIES, MICROBIOLOGY: Please see below. DVT prophylaxis ordered?: SCD ASSESSMENT AND PLAN: 1. ESRD, appreciated director of academic support now on HD 2. Severe anemia, negative stool occult bleed s/p transfusion he may need colonoscopy per core drill operator recommendation 3. Pancytopenia appreciated core drill operator input VS, I&O, 24H, Fishbone Vital Signs/I&O Vital Signs Date Time Temp Pulse Resp B/P (MAP) Pulse Ox O2 Delivery O2 Flow Rate FiO2 08/22/18 10:00 98.5 79 20 106/49 (68) 96 08/17/18 14:32 Room Air I&O- Last 24 Hours up to 6 AM 08/22/18 06:00 Intake Total 1520 ml Output Total 1900 ml Balance -380 ml Laboratory Data 24H LABS Laboratory Tests 2 08/21/18 13:12: Reticulocyte # (auto) 29.4, Percent Reticulocyte Count 1.1, Reticulocyte Hemoglobin Equivalent 41.8H, Total Protein (PEP) 6.1L, Carcinoembryonic Antigen 3.1H, Immunoglobulin A 15.8L, Immunoglobulin G 180L, Immunoglobulin M < 5.3L 08/22/18 07:42: Nucleated Red Blood Cells % (auto) 1.3H, Neutrophils 49, Lymphocytes (Manual) 45, Monocytes (Manual) 3, Eosinophils (Manual) 1, Basophils (Manual) 1, Atypical Lymphocytes 1, Platelet Estimate , Polychromasia 1+, Poikilocytosis 1+, Anisocytosis 1+, Macrocytosis 1+, Tear Drop Cells 1+, Ovalocytes 1+, Schistocytes 1+ CBC/BMP Laboratory Tests 08/22/18 07:42 Red Blood Count 2.54 L, Mean Corpuscular Volume 100.4 H, Mean Corpuscular Hemoglobin 33.1 H, Mean Corpuscular Hemoglobin Concent 32.9, Red Cell Distribution Width 20.8 H Microbiology Microbiology 08/18/18 Stool Occult Blood (SHREYAS) - Final, Complete MASOUD JERRY MD Aug 22, 2018 12:02
[2018-08-22 13:46] VITALS: BP 109/66
--- NOTE | 2018-08-22 17:50 | IPN ---
DATE: 08/22/2018 Mr. Cobb is seen this morning on his bedside. His brother and other family members present in the room. Patient's brother has several questions about his condition, diagnosis and prognosis. Patient has advanced renal failure and no recovery so far. He has been dialysis dependent and was dialyzed yesterday. Patient was also seen by hematology yesterday due to pancytopenia; however, Dr. Dai did not feel that the patient needs an urgent bone marrow biopsy. In the meantime, patient is feeling better with improved symptoms and denies any nausea, vomiting, dyspnea or chest pain. PHYSICAL EXAMINATION: Temperature is 98.5 degrees Fahrenheit, heart rate 80 per minute and respiratory rate 20 per minute. Blood pressure 106/49 mmHg and oxygen saturation 96% on room air. Head is atraumatic. Neck is supple and without jugular venous distention (JVD) or thyroid enlargement. Internal jugular vein catheter on right upper chest is without any signs of infection or bleeding. Heart sounds are regular. Lungs clear to auscultation. Abdomen soft and nontender and bowel sounds normal. Extremities without any cyanosis or clubbing. Neurologically, he is awake, alert and oriented times three. Today's labs show a WBC count 2.2, hemoglobin 8.4 and hematocrit 25.5. Platelets 102. Sodium 142, potassium 4.1, CO2 26, BUN 26 and creatinine 8.17. Calcium level is 10.3 and phosphorus 4.5. PROBLEMS: 1. Renal failure. Patient has advanced renal failure requiring dialysis. He was dialyzed yesterday and will be dialyzed again tomorrow. At this point, we do not have a definitive diagnosis of his renal failure. I have discussed with the patient and his brother at length about potential need for a kidney biopsy. Patient will be scheduled for biopsy on , as he is going to have dialysis tomorrow. We are going to hold his Lovenox after the dose today. I have explained about risks including bleeding, as patient has thrombocytopenia with elevated risk of bleeding. Patient is willing to proceed. 2. Pancytopenia. Patient has been seen by hematology and further lab work has been ordered. At this point, there is no decision for a bone marrow biopsy as yet. My feeling is that he will, at some point, require bone marrow biopsy. 3. Anemia. At this time, his anemia is stable and does not need any urgent intervention. We will consider to transfuse him, either before biopsy or at least give him some platelets before the kidney biopsy. 4. Shortness of breath and weakness. His symptoms have improved completely and he is feeling very well.
[2018-08-22 18:00] VITALS: BP 126/64
[2018-08-22 22:00] VITALS: BP 124/65
[2018-08-23 00:06] LABS: FREE KAPPA LIGHT CHAINS SERUM 36527.2 mg/L (3.3-19.4); FREE LAMBDA LIGHT CHAINS SERUM 8.2 mg/L (5.7-26.3); KAPPA/LAMBDA RATIO SERUM 4454.54 (0.26-1.65)
[2018-08-23 02:00] VITALS: BP 131/68
[2018-08-23 06:00] VITALS: BP 122/66
[2018-08-23 06:52] LABS: HEMATOCRIT 27.2 % (42.0-52.0); HEMOGLOBIN 8.8 g/dl (13.5-17.5); MEAN CORPUSCULAR HGB CONC 32.4 g/dl (32.0-36.5); PLATELET COUNT, AUTOMATED 100 10^3/uL (150-450); RED BLOOD COUNT 2.59 10^6/uL (4.30-6.10); WHITE BLOOD COUNT 2.8 10^3/uL (4.0-10.0)
[2018-08-23 07:12] LABS: COLLAGEN EPINEPHRINE 113 SECONDS (74-162)
[2018-08-23 07:21] LABS: ALBUMIN 2.8 GM/DL (3.2-5.2); CALCIUM LEVEL 10.8 MG/DL (8.8-10.2); CREATININE FOR GFR 6.69 MG/DL (0.70-1.30); PHOSPHORUS LEVEL 4.4 MG/DL (2.5-4.9)
--- NOTE | 2018-08-23 10:42 | IPNPDOC ---
Date Seen The patient was seen on 08/23/18. Progress Note SUBJECTIVE: 63 Y male, without significant PMH, did not see doctor in many presents with general weakness and weight loss found to be in severe anemia and renal failure now on HD no complains Reviews of systems no fever no chills no chest pain no abdominal pain no diarrhea no black stool OBJECTIVE PHYSICAL EXAMINATION: VITAL SIGNS: Please see below. GENERAL: AA Ox3, lying in the bed, comfortable and not in acute distress HEENT: atraumatic CARDIOVASCULAR: S1 S2 regular no murmur RESPIRATORY: clear, no rales no wheezing ABDOMINAL: soft BS +non tender EXTREMITIES: no edema NEUROLOGICAL: non focal PSYCHOLOGICAL: no acute psychosis LABORATORY DATA, IMAGING STUDIES, MICROBIOLOGY: Please see below. DVT prophylaxis ordered?: SCD ASSESSMENT AND PLAN: 1. 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 Severe anemia, negative stool occult bleed s/p transfusion; HH stable so far he may need colonoscopy per laborer shipyard recommendation 3. Pancytopenia appreciated laborer shipyard input 4. Disposition: he does not have insurance; He needs outpatient HD chair real estate manager is working on these issues VS, I&O, 24H, [facility] Vital Signs/I&O Vital Signs Date Time Temp Pulse Resp B/P (MAP) Pulse Ox O2 Delivery O2 Flow Rate FiO2 08/23/18 06:00 98.6 71 18 122/66 (84) 96 08/17/18 14:32 Room Air I&O- Last 24 Hours up to 6 AM 08/23/18 06:00 Intake Total 1950 ml Output Total 2300 ml Balance -350 ml Laboratory Data 24H LABS Laboratory Tests 2 08/23/18 06:35: Nucleated Red Blood Cells % (auto) 0.0, Platelet Func Collagen/Epinephrine 113, Blood Urea Nitrogen 17, Creatinine 6.69H, Sodium Level 141, Potassium Level 4.0, Chloride Level 107, Carbon Dioxide Level 28, Anion Gap 6L, Glomerular Filtration Rate 9.0L, Calcium Level 10.8H, Phosphorus Level 4.4, Albumin 2.8L CBC/BMP Laboratory Tests 08/23/18 06:35 Red Blood Count 2.59 L, Mean Corpuscular Volume 105.0 H, Mean Corpuscular Hemoglobin 34.0 H, Mean Corpuscular Hemoglobin Concent 32.4, Red Cell Distribution Width 20.5 H, Anion Gap 6 L Microbiology Microbiology 08/18/18 Stool Occult Blood (SHREYAS) - Final, Complete MASOUD JERRY MD Aug 23, 2018 10:42
--- NOTE | 2018-08-23 11:26 | MEDONCENPD ---
Encounter The patinet willl need a bone marrow biopsy and aspiate [place] light chain disease Janae Dai MD Aug 23, 2018 11:26
[2018-08-23 11:27] LABS: ALBUMIN 3.51 GM/DL (3.29-5.55); ALBUMIN % 60.6 % (55.8-66.1); ALPHA-1-GLOBULIN % 6.6 % (2.9-4.9); ALPHA-1-GLOBULINS 0.38 GM/DL (0.17-0.41); ALPHA-2-GLOBULINS 0.63 GM/DL (0.42-0.99); ALPHA-2-GLOBULINS % 10.9 % (7.1-11.8); BETA-1-GLOBULINS 0.23 GM/DL (0.28-0.60); BETA-1-GLOBULINS % 3.9 % (4.7-7.2); BETA-2-GLOBULINS 0.19 GM/DL (0.19-0.55); BETA-2-GLOBULINS % 3.3 % (3.2-6.5); GAMMA GLOBULIN % 14.7 % (11.1-18.8); GAMMA GLOBULINS 0.85 GM/DL (0.65-1.58)
[2018-08-23] MEDS ORDERED: DARBEPOETIN 100 MCG/0.5 ML *DIALYSIS* SYRINGE (J0882) IV SCH (11:30)
[2018-08-23] MEDS ORDERED: HEPARIN 1,000 UNITS/ML 10ML VIAL (FOR RADIOLOGY& DIALYSIS ONLY) IV ONE (12:15)
[2018-08-23] MEDS ORDERED: HEPARIN 1,000 UNITS/ML 10ML VIAL (FOR RADIOLOGY& DIALYSIS ONLY) XX ONE (12:15)
--- NOTE | 2018-08-23 13:44 | IPN ---
DATE OF VISIT: 08/23/2018 Mr. Cobb is seen this morning on his bedside during dialysis. He was admitted with shortness of breath and was noticed to have severe anemia and advanced renal failure. He has been dialysis dependent and no obvious etiology of his kidney failure identified so far. He did have hypercalcemia and abnormal appearance of his bones on the CT scan of abdomen and pelvis. He also developed pancytopenia and a hematology consult was requested. Dr. Dai saw the patient. However, she has not decided about doing a bone marrow biopsy even though patient has hypercalcemia, pancytopenia, renal failure of uncertain etiology, and abnormal appearance of bone marrow on the CAT scan. I have discussed with the patient about potential need for a kidney biopsy in order to make a diagnosis. He is being dialyzed today and we plan to do a kidney biopsy tomorrow. The patient has developed thrombocytopenia and will be given platelet transfusion prior to biopsy. I have explained to the patient and he has consented both for platelet transfusion and for kidney biopsy. In the meantime, his symptoms have improved following transfusion of packed red blood cells (RBCs) and dialysis treatments. He is tolerating his dialysis very well. He also had abnormal appearance of the sigmoid colon on the CT scan, however did not have iron deficiency, so I do not feel that he has any significant gastrointestinal (GI) problems contributing to his anemia. On physical exam, temperature 98.6 degrees Fahrenheit, heart rate 70 per minute and respiratory 18 per minute. Blood pressure 122/66 mmHg and oxygen saturation 96% on room air. Head is atraumatic. Neck is supple and without jugular venous distention (JVD) or thyroid enlargement. Right internal jugular vein Perma-Cath is present without any signs of infection or bleeding. Heart sounds are regular and lungs clear to auscultation. Abdomen soft and nontender, and bowel sounds normal. Extremities without any cyanosis or clubbing. Neurologically, he is awake, alert and without a focal deficit. Today's labs show WBC count 2.8, hemoglobin 8.8, and hematocrit 27.2. Platelets 100,000. Sodium 141, potassium 4.0, CO2 28, BUN 70, and creatinine 6.69. Calcium level is up to 10.8 and phosphorus 4.4. PROBLEMS: 1. Renal failure of uncertain etiology. Patient is being dialyzed and he does not have any uremic symptoms. We will schedule kidney biopsy for tomorrow in order to make a definitive diagnosis of his renal failure. 2. Hypercalcemia. We suspect multiple myeloma or any other pathology involving his bones. His intact parathyroid hormone (PTH) level was quite low, which is appropriate with hypercalcemia. At some point, he will probably need a bone marrow biopsy. 3. Anemia. Patient had improved anemia following transfusion of 2 units of packed RBCs. We have not given him Aranesp so far, and I am going to start with Aranesp 100 mcg once a week. 4. Thrombocytopenia. Etiology remains uncertain. We have held his Lovenox for now as he is scheduled for kidney biopsy tomorrow. We will give him platelet transfusion prior to biopsy.
[2018-08-23 14:00] VITALS: BP 107/64
[2018-08-23 14:29] LABS: ANTI DS-DNA AB <1:10 titer (.); Lyme Disease IgG/IgM Antibodie <0.91 ISR (0.00-0.90); Lyme Disease IgM Ab Quantitati <0.80 index (0.00-0.79)
--- NOTE | 2018-08-23 14:49 | REP ---
ADULT SKELETAL SURVEY: 16 views. HISTORY: Myeloma. No comparison radiographs. Comparison is made with CT abdomen and pelvis imaging from August 17, 2018. TECHNIQUE: AP and lateral views of the skull, cervical spine, thoracic and lumbar spine are obtained. AP views of each humerus and each femur are acquired. An AP view of the pelvis is acquired. The AP T-spine view includes the ribs. FINDINGS: AP and lateral views of the calvarium show no bony destructive lesion in the bony calvarium. Cervical spine views show degenerative disc disease at C3-4 through C6-7 most pronounced at C5-6. No flattening or collapse is seen. There is a tunnel catheter in place on the right. Thoracic spine views show no fracture collapse or subluxation. Multilevel degenerative disc spurring is noted. Lumbar spine shows loss of vertebral body height at L3 unchanged from the August 17, 2018 CT images. Pedicles and posterior elements appear intact in the lumbar spine. There are multiple tiny radiolucencies visible in the pelvis on AP view of the pelvis as well as in the proximal femurs bilaterally. No large lesion is seen. The femoral diaphyses are uninvolved. There are one or two radiolucencies in each proximal humerus which are tiny. IMPRESSION: Osteoporotic wedge compression deformity at L3. Multiple tiny rounded radiolucencies in the proximal femurs and proximal humeri. Lesions are much less conspicuous on plain radiography than on the recent CT study. Otherwise negative. Electronically Signed by Shamar Hamilton MD 08/23/2018 04:38 P
[2018-08-23 18:00] VITALS: BP 119/68
[2018-08-23 22:00] VITALS: BP 105/58
[2018-08-24] VITALS (9 sets, daily range): BP systolic 98–126; BP diastolic 53–80
[2018-08-24] MEDS ORDERED: LIDOCAINE 2% MDV 20 ML VIAL SC ONE (10:00)
[2018-08-24] MEDS ORDERED: BORTEZOMIB for SC use (VELCADE) SC ONE (11:30)
--- NOTE | 2018-08-24 11:32 | ONC.PHACK ---
CHEMO ADMIN CHECKLIST Order Contains Pt ID: Name Order on Chemo Order Form?: Yes Order Form Includes ALL: Correct Tx Day, Correct Date, Correct Cycle Number Pt ID on Order form Matches: Pt ID on PHA Label Med on Chemo OrderForm Matches: PHA Label, Med Used for Preparation [facility] Aug 24, 2018 11:32
[2018-08-24 11:45] LABS: HEMOGLOBIN 9.1 g/dl (13.5-17.5); MEAN CORPUSCULAR HEMOGLOBIN 33.2 pg (27.0-33.0); MEAN CORPUSCULAR HGB CONC 32.5 g/dl (32.0-36.5); MEAN CORPUSCULAR VOLUME 102.2 fl (80.0-96.0); PLATELET COUNT, AUTOMATED 103 10^3/uL (150-450); RED BLOOD COUNT 2.74 10^6/uL (4.30-6.10); WHITE BLOOD COUNT 2.7 10^3/uL (4.0-10.0)
[2018-08-24 12:26] LABS: LYMPHOCYTES 43 % (16-52); METAMYELOCYTES 2 % (0-0); MONOCYTES 3 % (0-8); NEUTROPHILS 49 % (35-75); PLATELET ESTIMATE DECREASED (NORMAL)
[2018-08-24 12:27] LABS: ANISOCYTOSIS 3+; OVALOCYTES 1+; POIKILOCYTOSIS 2+; POLYCHROMASIA 1+; SCHISTOCYTES 1+; TEAR DROP CELLS 1+
--- NOTE | 2018-08-24 13:33 | IPNPDOC ---
Date Seen The patient was seen on 08/24/18. Progress Note SUBJECTIVE: 63 Y male, without significant PMH, did not see doctor in many presents with general weakness and weight loss found to be in severe anemia and renal failure now on HD no complains Reviews of systems no fever no chills no chest pain no abdominal pain no diarrhea no black stool OBJECTIVE PHYSICAL EXAMINATION: VITAL SIGNS: Please see below. GENERAL: AA Ox3, lying in the bed, comfortable and not in acute distress HEENT: atraumatic CARDIOVASCULAR: S1 S2 regular no murmur RESPIRATORY: clear, no rales no wheezing ABDOMINAL: soft BS +non tender EXTREMITIES: no edema NEUROLOGICAL: non focal PSYCHOLOGICAL: no acute psychosis LABORATORY DATA, IMAGING STUDIES, MICROBIOLOGY: Please see below. 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 Severe anemia, negative stool occult bleed s/p transfusion; HH stable so far 3. Possible MM he is going to bone marrow biopsy today 4. Disposition: he does not have insurance; He needs outpatient HD chair information systems security manager is working on these issues VS, I&O, 24H, [facility] Vital Signs/I&O Vital Signs Date Time Temp Pulse Resp B/P (MAP) Pulse Ox O2 Delivery O2 Flow Rate FiO2 08/24/18 09:00 98.2 74 16 116/80 (92) 95 I&O- Last 24 Hours up to 6 AM 08/24/18 06:00 Intake Total 1290 ml Output Total 3035 ml Balance -1745 ml Laboratory Data 24H LABS Laboratory Tests 2 08/23/18 13:44: 08/24/18 11:10: Nucleated Red Blood Cells % (auto) 0.7H, Neutrophils 49, Band Neutrophils 3, Lymphocytes (Manual) 43, Monocytes (Manual) 3, Metamyelocytes 2H, Platelet Estimate DECREASED, Polychromasia 1+, Poikilocytosis 2+, Anisocytosis 3+, Macrocytosis 2+, Tear Drop Cells 1+, Ovalocytes 1+, Schistocytes 1+ CBC/BMP Laboratory Tests 08/24/18 11:10 Red Blood Count 2.74 L, Mean Corpuscular Volume 102.2 H, Mean Corpuscular Hemoglobin 33.2 H, Mean Corpuscular Hemoglobin Concent 32.5, Red Cell Distribution Width 20.1 H Microbiology Microbiology 08/18/18 Stool Occult Blood (SHREYAS) - Final, Complete MASOUD JERRY MD Aug 24, 2018 13:33
--- NOTE | 2018-08-24 13:51 | IPN ---
DATE OF SERVICE: 08/24/2018 SUBJECTIVE: Mr. Cobb was seen and examined this morning. He has completed a round of dialysis yesterday. He has been admitted for severe anemia and advanced renal failure. He has consistently shown pancytopenia on laboratories. He continued to have hypercalcemia despite intact parathyroid hormone (PTH). The patient has been seen by hematology/oncology, who had originally suspected a primary gastrointestinal (GI) origin malignancy. However, the patient did have multiple myeloma workup, including kappa chains, which demonstrated elevated free kappa light chains and free kappa lambda ratio, as well as elevated immunoglobulins suspected of multiple myeloma. The patient was scheduled for a kidney biopsy today. However, given the laboratory data suggesting possible multiple myeloma, the patient is now going to receive a bone marrow biopsy as for suspicion of multiple myeloma. The patient denies any new symptoms. He states that he feels okay. He denies any shortness of breath, chest pain, nausea, vomiting, diarrhea, or constipation. There have been no adverse events reported overnight. OBJECTIVE: Vital signs: Temperature 98.2, pulse 74, respiratory rate 16, blood pressure 116/80, pulse oximetry 95% on room air. General: The patient is awake, alert, and oriented. He appears in no acute distress. He is lying comfortably in bed. He is accompanied by his two brothers. He is conversive. HEENT: Head is atraumatic, normocephalic. NECK: Is supple without jugular venous distention. Trachea is midline. There is a right internal jugular vein PermCath present without any signs of infection or bleeding. Cardiovascular: Regular rate and rhythm with no clicks, rubs, or murmurs. Normal S1, S2. Pulmonary: Clear vesicular lung sounds to auscultation bilaterally. No wheezes, rhonchi, or rales. Abdominal: Soft, nontender, nondistended. No rebound, tenderness, or guarding. Positive bowel sounds throughout. Extremities: No cyanosis or clubbing. 2+ radial and posterior tibial pulses bilaterally. Psychiatric: Mood and affect appear appropriate for situation. LABORATORY DATA: Hematology: White blood cell 2.8, hemoglobin 8.8, hematocrit 27.2, platelet count 100. Chemistries: Sodium 141, potassium 4.0, chloride 107, BUN 17, creatinine 6.69, fasting glucose 93, calcium 10.8, phosphorus 4.4, albumin 2.8. Immunology: Free kappa light chain quantitative 36,527.2, free lambda light chain quantitative 8.2, free kappa lambda ratio is 4464.54. ASSESSMENT AND PLAN: 1. Renal failure of uncertain etiology. The patient was dialyzed yesterday. He previously had a kidney biopsy scheduled. However, given the results of his electrophoresis, is suspected of multiple myeloma, and a bone marrow biopsy is more pertinent to his clinical picture. He is scheduled for a bone marrow biopsy. It is likely that his renal failure is secondary to multiple myeloma. 2. Hypercalcemia. The patient continues to be hypercalcemic even though he has an intact parathyroid hormone, which is responding appropriately to his hypercalcemia. This is likely secondary to multiple myeloma. A bone marrow biopsy has been scheduled. The patient is being followed by hematology/oncology. 3. Pancytopenia. The patient has continued to be pancytopenic, likely secondary to some type of process such as multiple myeloma. He has received 2 units of packed red blood cells (PRBC) for anemia, and he will be started on Aranesp 100 mcg once a week. Will continue to trend. 4. Thrombocytopenia. The patient has had his Lovenox held for scheduled kidney biopsy. Will continue to hold as he will be receiving a bone marrow biopsy. MTDD
[2018-08-25 05:44] VITALS: BP 99/50
[2018-08-25 08:26] LABS: HEMATOCRIT 26.3 % (42.0-52.0); HEMOGLOBIN 8.6 g/dl (13.5-17.5); MEAN CORPUSCULAR HEMOGLOBIN 33.7 pg (27.0-33.0); MEAN CORPUSCULAR HGB CONC 32.7 g/dl (32.0-36.5); MEAN CORPUSCULAR VOLUME 103.1 fl (80.0-96.0); PLATELET COUNT, AUTOMATED 101 10^3/uL (150-450); RED BLOOD COUNT 2.55 10^6/uL (4.30-6.10); WHITE BLOOD COUNT 4.7 10^3/uL (4.0-10.0)
[2018-08-25 08:47] LABS: ALBUMIN 2.9 GM/DL (3.2-5.2); CALCIUM LEVEL 11.3 MG/DL (8.8-10.2); CREATININE FOR GFR 5.91 MG/DL (0.70-1.30); GLOMERULAR FILTRATION RATE 10.3 (>49); PHOSPHORUS LEVEL 3.5 MG/DL (2.5-4.9); POTASSIUM SERUM 3.9 MEQ/L (3.5-5.1)
[2018-08-25] MEDS ORDERED: HEPARIN 1,000 UNITS/ML 10ML VIAL (FOR RADIOLOGY& DIALYSIS ONLY) IV ONE (10:00)
--- NOTE | 2018-08-25 12:06 | IPNPDOC ---
Date Seen The patient was seen on 08/25/18. Progress Note SUBJECTIVE: 63 Y male, without significant PMH, did not see doctor in many presents with general weakness and weight loss found to be in severe anemia and renal failure now on HD no events overnight Reviews of systems no fever no chills no chest pain no abdominal pain no diarrhea no black stool OBJECTIVE PHYSICAL EXAMINATION: VITAL SIGNS: Please see below. GENERAL: AA Ox3, lying in the bed, comfortable and not in acute distress HEENT: atraumatic CARDIOVASCULAR: S1 S2 regular no murmur RESPIRATORY: clear, no rales no wheezing ABDOMINAL: soft BS +non tender EXTREMITIES: no edema NEUROLOGICAL: non focal PSYCHOLOGICAL: no acute psychosis LABORATORY DATA, IMAGING STUDIES, MICROBIOLOGY: Please see below. 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 Severe anemia, negative stool occult bleed s/p transfusion; HH stable so far 3. MM, bone marrow biopsy pending Chemotherapy started per Hemo/oncology 4. Disposition: he does not have insurance; He needs outpatient HD chair regional operations manager is working on these issues VS, I&O, 24H, [facility] Vital Signs/I&O Vital Signs Date Time Temp Pulse Resp B/P (MAP) Pulse Ox O2 Delivery O2 Flow Rate FiO2 08/25/18 05:44 97.8 65 18 99/50 (66) 96 I&O- Last 24 Hours up to 6 AM 08/25/18 06:00 Intake Total 1860 ml Output Total 2450 ml Balance -590 ml Laboratory Data 24H LABS Laboratory Tests 2 08/25/18 08:11: Nucleated Red Blood Cells % (auto) 0.0, Blood Urea Nitrogen 16, Creatinine 5.91H, Sodium Level 139, Potassium Level 3.9, Chloride Level 106, Carbon Dioxide Level 28, Anion Gap 5L, Glomerular Filtration Rate 10.3L, Calcium Level 11.3H, Phosphorus Level 3.5#, Albumin 2.9L CBC/BMP Laboratory Tests 08/25/18 08:11 Red Blood Count 2.55 L, Mean Corpuscular Volume 103.1 H, Mean Corpuscular Hemoglobin 33.7 H, Mean Corpuscular Hemoglobin Concent 32.7, Red Cell Distribution Width 19.7 H, Anion Gap 5 L Microbiology Microbiology 08/18/18 Stool Occult Blood (SHREYAS) - Final, Complete MASOUD JERRY MD Aug 25, 2018 12:06
[2018-08-25 14:00] VITALS: BP 96/47
--- NOTE | 2018-08-25 17:51 | IPN ---
DATE: 08/25/2018 Mr. Cobb is seen this morning during hemodialysis on his bedside. He underwent a bone marrow biopsy yesterday for possible multiple myeloma as he had very high level of free light chains in his blood. He is feeling well and denies any dyspnea, chest pain, nausea or vomiting. PHYSICAL EXAMINATION: Temperature 97.8 degrees Fahrenheit, heart rate 65 per minute and respiratory rate 18 per minute. Blood pressure 100/50 mmHg and oxygen saturation 96% on room air. Head is atraumatic. Neck is supple and without jugular venous distention (JVD) or thyroid enlargement. Internal jugular vein catheter on right upper chest is intact without any signs of infection. He has no oral thrush or ulcers. Heart sounds are regular. Lungs are clear to auscultation. Abdomen is soft and nontender and without hepatosplenomegaly. Bowel sounds are normal. Extremities have no cyanosis or clubbing. Neurologically, he is awake, alert and oriented x3. Today's labs show a WBC count 4.7, hemoglobin 8.6 and a hematocrit 26.3. Platelets 101,000. Sodium 139, potassium 3.9, CO2 28, BUN 16 and creatinine 5.91. Glucose 126 and calcium 11.3. His serum protein electrophoresis was positive for two monoclonal (M) spikes. His 24-hour urine protein was 8.8 grams and free kappa light chains for 36,526 mg. PROBLEMS: 1. Acute renal failure most likely related to multiple myeloma. Patient does not have any recovery of kidney function so far and, in fact, he just started the treatment yesterday. At present, he is dialysis-dependent and we will continue to dialyze him three times a week. He is being dialyzed today. 2. Pancytopenia. His white blood cell count improved to 4.7 today, probably due to steroids being given. His hemoglobin is stable at present following initial transfusion. Now he is receiving Aranesp 200 mcg once a week, which will be continued. His platelets are stable and there is no active bleeding. 3. Hypercalcemia. Most likely this is related to multiple myeloma. It is likely to improve with treatment of multiple myeloma. 4. Multiple myeloma. Patient has been started on Velcade 2.6 mg, one dose given and Decadron 40 mg one dose given yesterday. He is being followed by oncology.
[2018-08-25 22:00] VITALS: BP 109/54
[2018-08-26 06:00] VITALS: BP 112/67
--- NOTE | 2018-08-26 09:31 | IPNPDOC ---
Date Seen The patient was seen on 08/26/18. Progress Note SUBJECTIVE: 63 Y male, without significant PMH, did not see doctor in many presents with general weakness and weight loss found to be in severe anemia and renal failure further workups showed he has MM now on HD and chemo no events overnight Reviews of systems no fever no chills no chest pain no abdominal pain no diarrhea no black stool OBJECTIVE PHYSICAL EXAMINATION: VITAL SIGNS: Please see below. GENERAL: AA Ox3, no distress HEENT: atraumatic CARDIOVASCULAR: S1 S2 regular no murmur RESPIRATORY: clear, no rales no wheezing ABDOMINAL: soft BS +non tender EXTREMITIES: no edema NEUROLOGICAL: non focal PSYCHOLOGICAL: no acute psychosis LABORATORY DATA, IMAGING STUDIES, MICROBIOLOGY: Please see below. DVT prophylaxis ordered?: SCD ASSESSMENT AND PLAN: 1. 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 MM, bone marrow biopsy consistent with MM, further studies in progress Chemotherapy started per Hemo/oncology 3. Pancytopenia due to MM stable 4. Disposition: he does not have insurance; He needs outpatient HD chair manager protein is working on these issues VS, I&O, 24H, [facility] Vital Signs/I&O Vital Signs Date Time Temp Pulse Resp B/P (MAP) Pulse Ox O2 Delivery O2 Flow Rate FiO2 08/26/18 06:00 98.1 75 18 112/67 (82) 98 I&O- Last 24 Hours up to 6 AM 08/26/18 06:00 Intake Total 886 ml Output Total 1880 ml Balance -994 ml Laboratory Data Microbiology Microbiology 08/18/18 Stool Occult Blood (SHREYAS) - Final, Complete MASOUD JERRY MD Aug 26, 2018 09:31
[2018-08-26 09:59] VITALS: BP 113/65
[2018-08-26 13:10] VITALS: BP 115/61
--- NOTE | 2018-08-26 18:01 | IPN ---
DATE: 08/26/2018 SUBJECTIVE: The patient is seen and examined this morning at the bedside. Denies any acute overnight events or issues. Has been tolerating his dialysis treatments well via the Perm-A-Cath and continues to remain nonoliguric. VITAL SIGNS: Temperature 98.1, +75, respiratory rate 18, blood pressure 112/67, saturating 98% on room air. GENERAL: The patient is seen lying in bed. Family member is present at the bedside. The patient is awake, alert, oriented times four, interactive and cooperative. Extraocular muscles are intact. The tongue is moist. Neck is supple. Jugular veins are not elevated. The tunneled hemodialysis catheter in the right chest has a dressing that is clean, dry, and intact. CARDIAC: Sounds are S1, S2, regular. No edema in the peripheries. Palpable peripheral pulses. LUNGS: Clear to auscultation bilaterally. No crackle, rale, or rhonchus. ABDOMEN: Soft and nontender. There are bowel sounds. EXTREMITIES: Negative for edema, cyanosis, or clubbing. SKIN: Normal temperature and turgor. LABORATORY DATA: There are no new labs from today. INPATIENT MEDICATIONS. He continues on Aranesp with dialysis and Decadron per hematology. PROBLEMS: 1. Nonoliguric renal failure with nephrotic-range proteinuria in the setting of newly diagnosed myeloma. The patient at present remains dialysis dependent, and we will continue to monitor him for signs of renal recovery. Treatment has started as per hematology/oncology recommendations. He has a Perm-A-Cath in place and continues with three times weekly dialysis treatments. Electrolytes and volume status are acceptable. We will continue to monitor his interdialytic creatinine for signs of recovery of renal function. 2. Hypercalcemia. It is likely related to myeloma. His parathyroid hormone was appropriately suppressed. His phosphorus is normal. His calciums are stable and improving. 3. Pancytopenia. His white count has improved with likely steroid effect. He continues on Aranesp for his anemia, and his platelet counts are low but stable. Further recommendations will be as per hematology.
[2018-08-26 22:00] VITALS: BP 108/58
[2018-08-27 06:00] VITALS: BP 107/59
[2018-08-27 07:23] LABS: HEMOGLOBIN 7.3 g/dl (13.5-17.5); MEAN CORPUSCULAR HEMOGLOBIN 32.3 pg (27.0-33.0); MEAN CORPUSCULAR HGB CONC 31.7 g/dl (32.0-36.5); MEAN CORPUSCULAR VOLUME 101.8 fl (80.0-96.0); RED BLOOD COUNT 2.26 10^6/uL (4.30-6.10); WHITE BLOOD COUNT 3.8 10^3/uL (4.0-10.0)
[2018-08-27 07:25] LABS: PLATELET COUNT, AUTOMATED 91 10^3/uL (150-450)
[2018-08-27 07:59] LABS: CALCIUM LEVEL 10.2 MG/DL (8.8-10.2); CREATININE FOR GFR 5.57 MG/DL (0.70-1.30); GLOMERULAR FILTRATION RATE 11.1 (>49); POTASSIUM SERUM 3.9 MEQ/L (3.5-5.1)
--- NOTE | 2018-08-27 11:05 | IPNPDOC ---
Date Seen The patient was seen on 08/27/18. Progress Note SUBJECTIVE: 63 Y male, without significant PMH, did not see doctor in many presents with general weakness and weight loss found to be in severe anemia and renal failure further workups showed he has MM now on HD and chemo no events overnight Reviews of systems no fever no chills no chest pain no abdominal pain no diarrhea no black stool OBJECTIVE PHYSICAL EXAMINATION: VITAL SIGNS: Please see below. GENERAL: AA Ox3, no distress HEENT: atraumatic CARDIOVASCULAR: S1 S2 regular no murmur RESPIRATORY: clear, no rales no wheezing ABDOMINAL: soft BS +non tender EXTREMITIES: no edema NEUROLOGICAL: non focal PSYCHOLOGICAL: no acute psychosis LABORATORY DATA, IMAGING STUDIES, MICROBIOLOGY: Please see below. DVT prophylaxis ordered?: SCD ASSESSMENT AND PLAN: 1. 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 MM, bone marrow biopsy consistent with MM, further studies in progress Chemotherapy started per Hemo/oncology 3. Pancytopenia due to MM His HH drops to 7.3/23 and will recheck tomorrow and he may need transfusion 4. Hypercalcemia, mild and will monitor 5. 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 VS, I&O, 24H, [facility] Vital Signs/I&O Vital Signs Date Time Temp Pulse Resp B/P (MAP) Pulse Ox O2 Delivery O2 Flow Rate FiO2 08/27/18 06:00 97.7 62 18 107/59 (75) 95 I&O- Last 24 Hours up to 6 AM 08/27/18 06:00 Intake Total 1200 ml Output Total 1750 ml Balance -550 ml Laboratory Data 24H LABS Laboratory Tests 2 08/27/18 07:01: Nucleated Red Blood Cells % (auto) 0.5H, Immature Platelet Fraction 4.0, Anion Gap 9, Glomerular Filtration Rate 11.1L, Blood Urea Nitrogen 37#H, Creatinine 5.57H, Sodium Level 138, Potassium Level 3.9, Chloride Level 104, Carbon Dioxide Level 25, Calcium Level 10.2 CBC/BMP Laboratory Tests 08/27/18 07:01 Red Blood Count 2.26 L, Mean Corpuscular Volume 101.8 H, Mean Corpuscular Hemoglobin 32.3, Mean Corpuscular Hemoglobin Concent 31.7 L, Red Cell Distribution Width 19.9 H, Calcium Level 10.2 Microbiology Microbiology 08/18/18 Stool Occult Blood (SHREYAS) - Final, Complete MASOUD JERRY MD Aug 27, 2018 11:05
[2018-08-27 14:00] VITALS: BP 131/63
--- NOTE | 2018-08-27 15:26 | IPN ---
DATE: 08/27/2018 SUBJECTIVE: Patient is seen and examined this morning at the bedside. Denies any acute overnight events or issues. Has been ambulating up and down the halls. His hemoglobin has downtrended. He remains nonoliguric and is scheduled for dialysis tomorrow. VITAL SIGNS: Temperature 97.7, pulse 62, respiratory rate 18, blood pressure 107/59, saturating 95% on room air. Intake yesterday was 1200. Urine output yesterday was 2750, net negative 1550. Weight in the bed scale today is not recorded. GENERAL: Patient is seen awake, alert, oriented, comfortable, in no acute distress. Extraocular muscles are intact. Conjunctivae are pale. The tongue is moist. Neck is supple. Jugular veins were not elevated. Tunneled hemodialysis catheter right chest wall is clean, dry and intact. Heart sounds are regular. S1, S2. No edema in the peripheries. Palpable peripheral pulses. Lungs are clear to auscultation bilaterally. No crackle rale or rhonchus. Abdomen is soft and nontender. There are bowel sounds. Extremities are negative for edema, cyanosis or clubbing. SKIN: Normal temperature and turgor. LABORATORY DATA: Sodium 138, potassium 3.9, calcium 10.2. Hemoglobin 7.3, white count 3.8, platelet 91. INPATIENT MEDICATIONS: Reviewed by myself and no change from prior. PROBLEMS: 1. 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 Patient's next dialysis treatment will be on Tuesday. Treatment for the underlying myeloma has started as per hematology/oncology recommendations. We will continue to dialyze him three times a week and monitor for signs of renal recovery. He has a Perma-Cath in place and is pending vein mapping tomorrow. Electrolytes and volume status are acceptable. 2. Anemia/pancytopenia. Patient has a depressed white blood cell count, hemoglobin and platelets. He is followed by hematology. It is a likely a manifestation of the myeloma. He continues on Aranesp and I will plan to transfuse 2 units with hemodialysis on Tuesday. Further recommendations are deferred to hematology/oncology. 3. Hypercalcemia. It is likely related also to myeloma. Parathyroid hormone (PTH) was appropriately suppressed. Phosphorus is normal. His calcium level has improved nicely.
[2018-08-27 21:37] VITALS: BP 111/62
[2018-08-28 02:17] VITALS: BP 106/62
[2018-08-28 06:34] VITALS: BP 118/65
[2018-08-28 06:56] LABS: HEMATOCRIT 24.4 % (42.0-52.0); HEMOGLOBIN 7.9 g/dl (13.5-17.5); MEAN CORPUSCULAR HEMOGLOBIN 34.1 pg (27.0-33.0); MEAN CORPUSCULAR HGB CONC 32.4 g/dl (32.0-36.5); MEAN CORPUSCULAR VOLUME 105.2 fl (80.0-96.0); RED BLOOD COUNT 2.32 10^6/uL (4.30-6.10)
[2018-08-28 07:00] LABS: PLATELET COUNT, AUTOMATED 92 10^3/uL (150-450)
[2018-08-28 07:14] LABS: CALCIUM LEVEL 9.7 MG/DL (8.8-10.2); CREATININE FOR GFR 6.38 MG/DL (0.70-1.30); GLOMERULAR FILTRATION RATE 9.5 (>49); POTASSIUM SERUM 4.1 MEQ/L (3.5-5.1)
--- NOTE | 2018-08-28 08:47 | IPN ---
DATE: 08/28/2018 Prosper is seen on [address] on the hospitalist service. He is feeling well; better since he started his various treatments. He has been diagnosed with acute renal failure. He had been diagnosed with nonoliguric renal failure and nephrotic range proteinuria probably secondary to myeloma. It looks as if he has initiated chemotherapy while here and also getting dialysis. He is less short of breath. Denies any chest pain. Denies any pain. Denies any rectal bleeding. PHYSICAL EXAMINATION: Blood pressure 118/65, pulse 70, respiratory rate 18, 96% saturations. General appearance: Resting comfortably. No distress. Lungs: Clear. Heart: Regular rhythm. Abdomen: Soft nontender. No peripheral edema. IMPRESSION: 1. Nonoliguric renal failure getting dialysis three times a week. 2. Anemia/pancytopenia. Being followed by hematology. Probably from his myeloma. It looks like he has started chemo waiting for further oncology notes. He is on Aranesp and getting transfused today. 3. Hypercalcemia: This has resolved with hydration, probably secondary to myeloma, has a suppressed PTH. 4. Multiple myeloma: Treatment per oncology.
[2018-08-28] MEDS ORDERED: HEPARIN 1,000 UNITS/ML 10ML VIAL (FOR RADIOLOGY& DIALYSIS ONLY) XX ONE (11:45)
--- NOTE | 2018-08-28 12:22 | ONC.PHACK ---
CHEMO ADMIN CHECKLIST Order Contains Pt ID: Name, Order on Chemo Order Form?: Yes Order Form Includes ALL: Correct Tx Day, Correct Date, Correct Cycle Number Pt ID on Order form Matches: Pt ID on PHA Label Med on Chemo OrderForm Matches: PHA Label, Med Used for Preparation [facility] Aug 28, 2018 12:22
[2018-08-28 14:28] VITALS: BP 109/56
[2018-08-28] MEDS ORDERED: BORTEZOMIB for SC use (VELCADE) SC ONE (15:00)
--- NOTE | 2018-08-28 16:51 | REP ---
BILATERAL EXTREMITY DUPLEX DOPPLER ARTERIAL AND VENOUS ULTRASOUND FOR AV FISTULA MAPPING: Real-time ultrasound evaluation and duplex Doppler interrogation of bilateral upper extremity and deep venous systems is performed. No deep vein thrombosis is seen bilaterally. On the right the basilic veins measures 8 mm at the upper humerus, 3 mm at the lower humerus and 2 mm in the upper forearm, not seen peripheral to that. Right cephalic veins measures 5 mm at the upper humerus, 3 mm at the lower humerus and 2 mm in the upper and lower forearm and wrist region. Median cubital vein measures 3 mm. Right upper extremity arterial structures demonstrate normal flow velocities with triphasic wave forms, right axillary artery 7 mm, brachial artery 6 mm, radial artery 2 mm and ulnar artery 3 mm. Left basilic vein measures 5 mm at the upper humerus, 3 mm at the lower humerus, 2 mm in the upper forearm and 1 mm in the lower forearm and wrist. Left cephalic veins measures 4 mm at the upper humerus, 6 mm at the lower humerus, 4 mm in the upper forearm and 2 mm at the lower forearm and wrist, median cubital vein measures 2 mm. Left upper extremity arterial structures demonstrate normal flow velocities with triphasic wave forms. Left axillary artery measures 7 mm, brachial artery 5 mm and the radial and ulnar artery is 3 mm. Electronically Signed by Francisco Herron MD 08/29/2018 05:23 P
--- NOTE | 2018-08-28 20:19 | IPN ---
DATE: 08/28/2018 SUBJECTIVE: Mr. Cobb was seen and examined today in dialysis. He currently has no complaints. There were no adverse events reported overnight. He is going to be followed with hematology/oncology for his recent diagnosis of multiple myeloma. He has been continued on his dialysis schedule of Tuesday, Tuesday and Tuesday. OBJECTIVE: VITAL SIGNS: Temperature 98.2, pulse 72, respiratory rate 18, blood pressure 118/65, pulse oximetry 96% on room air. GENERAL: The patient is awake, alert and oriented. He is lying comfortably in bed in the dialysis room and currently receiving dialysis. He appears in no acute distress. CARDIOVASCULAR: Normal S1, S2. Regular rate and rhythm. No clicks, rubs or murmurs. NECK: No jugular venous distention (JVD). Trachea is midline. PULMONARY: Clear breath sounds bilaterally. No rhonchi, wheeze or rales. ABDOMEN: The patient is obese. Abdomen is nontender to palpation. It is nondistended. He has positive bowel sounds in all four quadrants. EXTREMITIES: The patient has no edema in bilateral lower extremities. 2+ radial and posterior tibial pulses bilaterally. PSYCHIATRIC: Mood and affect appear appropriate. CHEST: The patient has a tunneled hemodialysis catheter in his right chest wall, which he is receiving dialysis through today. LABORATORY DATA: Hematology: White blood cells 4.0, hemoglobin 10.9, hematocrit 24.4, platelet count 92. Chemistries: Sodium 140, potassium 4.1, chloride 106, CO2 of 25, creatinine 6.38, fasting glucose 116, calcium 9.7. ASSESSMENT AND PLAN: 1. Nonoliguric renal failure with nephrotic range proteinuria in the setting of myeloma with [place] light chain disease. The patient received dialysis today with addition of 2 units of packed red blood cell transfusion. He is currently receiving treatment for his myeloma, which was started per hematology/oncology recommendations. He will continue on a dialysis schedule of Tuesday, Tuesday and Tuesday. The patient currently has a tunneled PermaCath placed and he is undergoing venous mapping today. His electrolytes and volume status is in acceptable range. 2. Anemia/pancytopenia. The patient has anemia and pancytopenia, likely secondary to multiple myeloma. He is currently being followed by hematology/oncology. He receives Aranesp weekly . He is going to receive a transfusion of 2 units of packed red blood cells today with hemodialysis. All further recommendations will be deferred to hematology/oncology. 3. Hypercalcemia. This is likely related to his multiple myeloma. His current calcium is 9.7 and in acceptable range. His PTH was appropriately suppressed. His phosphorous is normal. Continue to follow. MTDD
[2018-08-28 20:58] VITALS: BP 125/65
[2018-08-29 05:38] VITALS: BP 122/66
--- NOTE | 2018-08-29 08:24 | IPN ---
DATE: 08/29/2018 Prosper was seen on the hospitalist service. He is getting dialysis and treated for multiple myeloma. He feels better today. He is more energetic and wants to get out of bed. He did not get out of bed very much yesterday. No chest pain. No shortness of breath. PHYSICAL EXAMINATION: VITAL SIGNS: Stable. Afebrile. LUNGS: Clear. HEART: Regular rhythm. ABDOMEN: Soft, nontender. EXTREMITIES: No peripheral edema. Normal strength the arms and legs. LABORATORIES: He has laboratories ordered for today but I do not see where they have been drawn yet. IMPRESSION: 1. Nonoliguric renal failure, getting dialysis three times a week. 2. Anemia/pancytopenia. Transfusions per nephrology. 3. Multiple myeloma. Treatment per oncology. There was a question concerning his Decadron, which I deferred to his oncologist. 4. Hypercalcemia. This is resolved with treatment of myeloma and hydration.
[2018-08-29 10:19] LABS: HEMATOCRIT 28.5 % (42.0-52.0); HEMOGLOBIN 9.3 g/dl (13.5-17.5); MEAN CORPUSCULAR HEMOGLOBIN 32.1 pg (27.0-33.0); MEAN CORPUSCULAR HGB CONC 32.6 g/dl (32.0-36.5); MEAN CORPUSCULAR VOLUME 98.3 fl (80.0-96.0); PLATELET COUNT, AUTOMATED 100 10^3/uL (150-450)
[2018-08-29 10:37] LABS: CALCIUM LEVEL 9.8 MG/DL (8.8-10.2); CREATININE FOR GFR 4.38 MG/DL (0.70-1.30); GLOMERULAR FILTRATION RATE 14.6 (>49); POTASSIUM SERUM 3.7 MEQ/L (3.5-5.1)
--- NOTE | 2018-08-29 12:43 | IPN ---
DATE: 08/29/2018 SUBJECTIVE: Mr. Cobb was seen and examined today. He currently has no new complaints. There were no adverse events reported overnight. He received dialysis yesterday as well as transfusion of 2 units of packed red blood cells. He is continued to be followed by hematology/oncology for his recent diagnosis of multiple myeloma. Patient is awaiting outpatient hemodialysis chair before discharge. OBJECTIVE: VITAL SIGNS: Temperature 98.0, pulse 68, respiratory rate 20, blood pressure 122/66, pulse oximetry 96% on room air. GENERAL: Patient is awake, alert, and oriented. He appears in no acute distress. He is sitting comfortably on the side of the bed in his room. CARDIOVASCULAR: Normal S1, S2. Regular rate and rhythm. No clicks, rubs, or murmurs. NECK: No jugular venous distention. Trachea is midline. PULMONARY: Clear breath sounds bilaterally. No wheezes, rhonchi, or rales. ABDOMINAL: Patient's abdomen is nontender to palpation in all four quadrants. No rebound, tenderness, or guarding. Nondistended. Positive bowel sounds in all four quadrants. EXTREMITIES: No edema in bilateral lower extremities. 2+ radial and posterior tibial pulses bilaterally. PSYCHIATRIC: Mood and affect appear appropriate. CHEST: Patient has a tunneled hemodialysis catheter in his right chest wall. LABORATORY DATA: Hematology: White blood cells 4.0, hemoglobin 9.3, hematocrit 28.5, platelet count 100. Chemistries: Sodium 140, potassium 3.7, chloride 106, carbon dioxide 28, BUN 40, creatinine 4.38, fasting glucose 160, calcium 9.8. ASSESSMENT AND PLAN: 1. Nonoliguric renal failure with nephrotic range proteinuria in the setting of myeloma with kappa light chain disease: Patient has received hemodialysis yesterday with the addition of 2 units of packed red blood cells. His hemoglobin has improved. He continues to receive treatment for his myeloma, which was started per hematology/oncology recommendations. Plan is to continue him on his dialysis schedule of Tuesday, Tuesday, Tuesday. He does have a tunneled PermaCath placed. He had received venous mapping yesterday. Plan is for possible fistula placement as an outpatient, if the patient's renal function does not improve with the next few months of treatment for his myeloma. Patient is currently awaiting a chair at outpatient hemodialysis center, at which point, from a nephrology standpoint, he can be discharged. 2. Anemia/pancytopenia. Patient has been anemic and pancytopenic during his hospital stay, which is secondary to his multiple myeloma. He is being followed by hematology/oncology. He has received Aranesp weekly. Yesterday, he did receive a transfusion of 2 units packed red blood cells with his hemodialysis. His hemoglobin has improved today after his transfusion. I will continue to monitor 3. Hypercalcemia. Once again, this is related to his multiple myeloma. His calcium is currently in acceptable range. Will continue to follow. MTDD
[2018-08-29 15:37] VITALS: BP 108/49
[2018-08-29 22:00] VITALS: BP 108/49
[2018-08-30 06:00] VITALS: BP 110/56
[2018-08-30 07:10] LABS: HEMATOCRIT 28.3 % (42.0-52.0); HEMOGLOBIN 9.3 g/dl (13.5-17.5); MEAN CORPUSCULAR HEMOGLOBIN 33.3 pg (27.0-33.0); MEAN CORPUSCULAR HGB CONC 32.9 g/dl (32.0-36.5); MEAN CORPUSCULAR VOLUME 101.4 fl (80.0-96.0); PLATELET COUNT, AUTOMATED 91 10^3/uL (150-450); RED BLOOD COUNT 2.79 10^6/uL (4.30-6.10); WHITE BLOOD COUNT 3.5 10^3/uL (4.0-10.0)
[2018-08-30 07:26] LABS: CALCIUM LEVEL 9.6 MG/DL (8.8-10.2); CREATININE FOR GFR 4.93 MG/DL (0.70-1.30); GLOMERULAR FILTRATION RATE 12.7 (>49); POTASSIUM SERUM 3.9 MEQ/L (3.5-5.1)
[2018-08-30] MEDS ORDERED: HEPARIN 1,000 UNITS/ML 10ML VIAL (FOR RADIOLOGY& DIALYSIS ONLY) XX ONE (11:30)
[2018-08-30 14:00] VITALS: BP 130/61
--- NOTE | 2018-08-30 14:01 | IPN ---
DATE OF SERVICE: 08/30/2018 Prosper was seen on [address]. He was in dialysis the first few times I tried to see him today. The family wanted to meet. I went to [address] within minutes of receiving that request, but the family had already left. The patient feels well. He says he "walked two miles" yesterday in the hallway. Energy levels are much improved. PHYSICAL EXAMINATION: VITAL SIGNS: Stable. 110/56. LUNGS: Clear. HEART: Regular rate and rhythm. ABDOMEN: Soft, nontender. LABORATORIES: White count 3.5, hemoglobin 9.3, platelets 91. Creatinine is down to 4.9. IMPRESSION: 1. Nonoliguric renal failure, getting dialysis three times a week. Discharge is dependent upon having arrangements made to continue this as an outpatient. 2. Multiple myeloma. I spoke with Dr. Dai today. She will be ordering his Decadron when necessary and will be managing that aspect of his care. She feels he can be managed as an outpatient from her perspective. 3. Anemia/pancytopenia. Transfusions per nephrology. Discharge is planned once arrangements are made for his dialysis as an outpatient.
--- NOTE | 2018-08-30 16:11 | IPN ---
DATE: 08/30/2018 SUBJECTIVE: Mr. Cobb was seen and examined this morning during his dialysis. He currently has no new complaints. There were no adverse events reported overnight. He continues to be followed by hematology/oncology for his diagnosed multiple myeloma. He is receiving dialysis through his tunneled hemodialysis catheter in the right chest wall. OBJECTIVE: VITAL SIGNS: Temperature 97.9, pulse 72, respiratory rate 18, blood pressure 130/61, pulse oximetry 96% on room air. GENERAL: Patient is awake, alert and oriented. He appears in no acute distress. He is lying comfortably in bed receiving dialysis. CARDIOVASCULAR: Normal S1, S2. Regular rate and rhythm. No clicks, rubs or murmurs. No jugular venous distention. CHEST: Patient has a tunneled hemodialysis catheter in his right chest wall, which is currently patent and in use. PULMONARY: Clear vesicular breath sounds bilaterally. No wheezes, rhonchi or rales. Good respiratory effort. ABDOMEN: Patient is obese. Abdomen is nontender, nondistended. No rebound tenderness or guarding. Positive bowel sounds in all four quadrants. EXTREMITIES: Patient has no edema in the bilateral lower extremities. 2+ renal posterior pulses bilaterally. PSYCHIATRIC: Mood and affect appear appropriate. LABORATORY DATA: Hematology: White blood cell count 3.5, hemoglobin 9.3, hematocrit 28.3, platelet count 91. Chemistry: Sodium 141, potassium 3.9, chloride 106, carbon dioxide 28, BUN 48, creatinine 4.93, fasting glucose 92, calcium 9.6. ASSESSMENT AND PLAN: 1. Nonoliguric renal failure with nephrotic-range proteinuria in the setting of myeloma with [place] light chain disease: Patient currently is receiving hemodialysis per his usual schedule. His hemoglobin has stayed stable and he just received maintenance dialysis today. He continues to receive treatment for his myeloma, which is being followed by hematology/oncology recommendations. Patient is to be continued on his dialysis schedule Tuesday, Tuesday, Tuesday. He continues to have a tunneled PermaCath in the right chest wall that is in use. He has already received his venous mapping. From a nephrology standpoint, once the patient has dialysis set up as an outpatient, he can be discharged with followup. Regarding his fistula placement, plan is to consider possible fistula placement in the future if patient does not improve his renal function within the next several months. 2. Anemia/pancytopenia: Patient is anemia and pancytopenic secondary to his multiple myeloma. He did receive 2 units of packed red blood cells two days ago. He receives weekly Aranesp. His next dose is due on Tuesday. His hemoglobin has stayed stable overnight. We will continue to monitor. 3. Hypercalcemia: Patient has hypercalcemia secondary to multiple myeloma. Calcium is currently in acceptable range. Continue to follow. MTDD
[2018-08-30 22:00] VITALS: BP 106/52
[2018-08-31 00:09] LABS: FREE KAPPA LIGHT CHAINS SERUM 31202.7 mg/L (3.3-19.4); FREE LAMBDA LIGHT CHAINS SERUM 3.6 mg/L (5.7-26.3); KAPPA/LAMBDA RATIO SERUM 8667.42 (0.26-1.65)
[2018-08-31 06:00] VITALS: BP 95/52
[2018-08-31 06:45] LABS: HEMATOCRIT 30.4 % (42.0-52.0); HEMOGLOBIN 9.8 g/dl (13.5-17.5); MEAN CORPUSCULAR HEMOGLOBIN 33.1 pg (27.0-33.0); MEAN CORPUSCULAR HGB CONC 32.2 g/dl (32.0-36.5); MEAN CORPUSCULAR VOLUME 102.7 fl (80.0-96.0); RED BLOOD COUNT 2.96 10^6/uL (4.30-6.10); WHITE BLOOD COUNT 2.7 10^3/uL (4.0-10.0)
[2018-08-31 06:46] LABS: PLATELET COUNT, AUTOMATED 99 10^3/uL (150-450)
[2018-08-31 07:11] LABS: CALCIUM LEVEL 10.1 MG/DL (8.8-10.2); CREATININE FOR GFR 3.83 MG/DL (0.70-1.30); GLOMERULAR FILTRATION RATE 17.1 (>49); POTASSIUM SERUM 4.2 MEQ/L (3.5-5.1)
--- NOTE | 2018-08-31 08:21 | IPNPDOC ---
Date Seen The patient was seen on 08/31/18. patient is undergoing therapy for light chain disease on bortezomib therapy day 1,4,8,11 tolerating the injections well Progress Note SUBJECTIVE: Patient is a -year-old [RACE] [GENDER] with OBJECTIVE PHYSICAL EXAMINATION: VITAL SIGNS: Please see below. GENERAL: [nc] HEENT: CARDIOVASCULAR: . RESPIRATORY: . ABDOMINAL: EXTREMITIES: NEUROLOGICAL: PSYCHOLOGICAL: LABORATORY DATA, IMAGING STUDIES, MICROBIOLOGY: Please see below. Echocardiogram: . DVT prophylaxis ordered?: Laboratory Tests 08/29/18 10:05 Red Blood Count 2.90 L, Mean Corpuscular Volume 98.3 H, Mean Corpuscular Hemoglobin 32.1, Mean Corpuscular Hemoglobin Concent 32.6, Red Cell Distribution Width 20.7 H, Calcium Level 9.8 08/30/18 06:38 Red Blood Count 2.79 L, Mean Corpuscular Volume 101.4 H, Mean Corpuscular Hemoglobin 33.3 H, Mean Corpuscular Hemoglobin Concent 32.9, Red Cell Distribution Width 20.5 H, Calcium Level 9.6 08/31/18 06:27 Red Blood Count 2.96 L, Mean Corpuscular Volume 102.7 H, Mean Corpuscular Hemoglobin 33.1 H, Mean Corpuscular Hemoglobin Concent 32.2, Red Cell Distribution Width 20.6 H, Calcium Level 10.1 ASSESSMENT AND PLAN: This is a -year-old [RACE] [GENDER] with . Light chain myeloma renal failure Ok from hematology perspective to discharge to home will get the nurse navigator in the cancer center to prabha montalvo his appts for follow up VS, I&O, 24H, [facility] Vital Signs/I&O Vital Signs Date Time Temp Pulse Resp B/P (MAP) Pulse Ox O2 Delivery O2 Flow Rate FiO2 08/31/18 06:00 97.6 70 18 95/52 (66) 93 I&O- Last 24 Hours up to 6 AM 08/31/18 06:00 Intake Total 1290 ml Output Total 3500 ml Balance -2210 ml Laboratory Data 24H LABS Laboratory Tests 2 08/31/18 06:27: Nucleated Red Blood Cells % (auto) 1.9H, Anion Gap 7L, Glomerular Filtration Rate 17.1L, Blood Urea Nitrogen 27H, Creatinine 3.83H, Sodium Level 143, Potassium Level 4.2, Chloride Level 106, Carbon Dioxide Level 30, Calcium Level 10.1 CBC/BMP Laboratory Tests 08/31/18 06:27 Red Blood Count 2.96 L, Mean Corpuscular Volume 102.7 H, Mean Corpuscular Hemoglobin 33.1 H, Mean Corpuscular Hemoglobin Concent 32.2, Red Cell Distribution Width 20.6 H, Calcium Level 10.1 Janae Dai MD Aug 31, 2018 08:21
--- NOTE | 2018-08-31 11:07 | IPN ---
DATE: 08/31/2018 Prosper is seen on [address] I spoke to Dr. Janae Dai his oncologist today and she is directing his bortezomib therapy as well as his steroid dosing. She feels he can be discharged home from her perspective. At this point, we are just waiting for all of the financial arrangements to be made concerning his dialysis. This patient is up walking in the hallway and having no distress. He walked about 2 miles yesterday. PHYSICAL EXAMINATION: Afebrile. Vital signs stable. Lungs clear. Heart regular rhythm. Abdomen soft, nontender. No peripheral edema. Normal strength in the arms and legs. IMPRESSION: 1. Nonoliguric renal failure from presumed myeloma kidney. Continue getting three time a week dialysis. 2. Myeloma. Treatment per Dr. Dai. 3. Pancytopenia. Transfusion per nephrology. Patient will be discharged once patient and family services (PFS) has all of his financial arrangements made concerning dialysis.
[2018-08-31 13:50] VITALS: BP 121/64
[2018-08-31 22:00] VITALS: BP 119/60
[2018-09-01 05:55] LABS: HEMATOCRIT 27.3 % (42.0-52.0); HEMOGLOBIN 8.8 g/dl (13.5-17.5); MEAN CORPUSCULAR HEMOGLOBIN 31.4 pg (27.0-33.0); MEAN CORPUSCULAR HGB CONC 32.2 g/dl (32.0-36.5); MEAN CORPUSCULAR VOLUME 97.5 fl (80.0-96.0); WHITE BLOOD COUNT 4.3 10^3/uL (4.0-10.0)
[2018-09-01 05:59] LABS: PLATELET COUNT, AUTOMATED 98 10^3/uL (150-450)
[2018-09-01 06:00] VITALS: BP 111/58
[2018-09-01 06:18] LABS: CALCIUM LEVEL 9.6 MG/DL (8.8-10.2); CREATININE FOR GFR 4.68 MG/DL (0.70-1.30); GLOMERULAR FILTRATION RATE 13.5 (>49)
[2018-09-01] MEDS ORDERED: HEPARIN 1,000 UNITS/ML 10ML VIAL (FOR RADIOLOGY& DIALYSIS ONLY) XX ONE (11:45)
--- NOTE | 2018-09-01 12:36 | ONC.PHACK ---
CHEMO ADMIN CHECKLIST Order Contains Pt ID: Name, Order on Chemo Order Form?: Yes Order Form Includes ALL: Correct Tx Day, Correct Date, Correct Cycle Number Pt ID on Order form Matches: Pt ID on PHA Label Med on Chemo OrderForm Matches: PHA Label, Med Used for Preparation [facility] Sep 01, 2018 12:36
[2018-09-01] MEDS ORDERED: BORTEZOMIB for SC use (VELCADE) SC ONE (13:00)
[2018-09-01 14:00] VITALS: BP 130/69
--- NOTE | 2018-09-01 15:02 | IPN ---
DATE: 09/01/2018 Prosper's status unchanged from yesterday. He is getting dialysis today. PHYSICAL EXAM: Vital signs stable. Exam is unchanged. LABS: Hemoglobin is 8.8. Potassium is 4. PLAN: I spoke with patient and family services (PFS). Plan is to discharge the patient on 09/04/2018, after arrangements are finalized concerning coverage for outpatient dialysis.
--- NOTE | 2018-09-01 15:43 | IPN ---
DATE: 08/31/2018 SUBJECTIVE: Patient is seen and examined this morning at the bedside. Denies any acute overnight events or issues. Was dialyzed yesterday with minimal fluid removed. He is pending outpatient hemodialysis arrangements VITAL SIGNS: Temperature 99.2, pulse 75, respiratory rate 20, blood pressure 121/64, saturating 93% on room air. Intake yesterday was 1140. Dialysis yesterday removed 550. Urine output yesterday was 2 liters. Weight in the bed scale today is not recorded. Net negative 1500 mL in the past 24 hours. GENERAL: The patient is seen awake, alert, oriented, comfortable in no acute distress. Extraocular muscles are intact. Tongue is moist. Neck is supple. Tunneled hemodialysis catheter present in the right chest wall with dressing, clean, dry, and intact. HEART: Sounds are regular, S1, S2. There is no edema in the periphery nor in the dependent areas. LUNGS: Clear to auscultation bilaterally. No crackle, rale, or rhonchus. ABDOMEN: Soft and nontender. EXTREMITIES: Negative for negative for clubbing, cyanosis, or edema. NEUROLOGIC: He is oriented times four. No focal deficits. LABORATORY DATA: White count 2.7, hemoglobin 9.8, platelet 99. Sodium 143, potassium 4.2, calcium 10.1. INPATIENT MEDICATIONS: Reviewed by myself and no change from prior. PROBLEMS: 1. Nonoliguric renal failure in the setting of myeloma. The patient continues on three times weekly hemodialysis. He is pending outpatient hemodialysis setup. He continues with chemotherapy as per hematology/oncology. He is dialyzing via [id number]. He is status post vein mapping. We will consider fistula in the near future if his renal function does not improve in the coming weeks. His electrolytes and volume status are acceptable. No change is being made to the current dialysis prescription. 2. Anemia/pancytopenia. Low white count, low platelets and hemoglobin. Status post 6 units packed red blood cells (PRBC) on this admission and on weekly Aranesp. Remainder of management of pancytopenia is as per hematology in view of myeloma and chemotherapy. DISPOSITION: The patient is pending outpatient hemodialysis arrangement prior to discharge.
[2018-09-01 22:00] VITALS: BP 112/63
[2018-09-02 06:00] VITALS: BP 130/73
--- NOTE | 2018-09-02 06:58 | IPN ---
DATE OF SERVICE: 09/01/2018 SUBJECTIVE: Prosper is seen and examined this morning in the hemodialysis unit receiving his maintenance treatment, denies any acute overnight events or issues. Continues to be tolerating his dialysis treatments uneventfully. We continue to wait for outpatient hemodialysis arrangements. Temperature 97.7, pulse 64, respiratory rate 18, blood pressure 111/58, saturating 97% on room air. Intake yesterday was 2390, urine output yesterday was 2225, weight on the bed scale today is not recorded. General: Patient is seen receiving his treatment, middle-aged male, appears stated age. Extraocular muscles are intact. Tongue is moist. Neck is supple. Jugular veins were not elevated. Tunneled hemodialysis catheter in the right chest wall presently in use. Cardiac S1 and S2, regular rate and rhythm. Lungs are clear to auscultation bilaterally. No crackles, rales or rhonchus. Abdomen is soft and nontender. There are bowel sounds. Extremities are negative for clubbing, cyanosis or edema. Skin normal temperature and turgor. Psychiatric appropriate mood and effect. Neurologic: Oriented times four, no focal deficits. LABS: White count 4.3, hemoglobin 8.8, platelets 98. Sodium 140, potassium 4.0. INPATIENT MEDICATIONS: He continues on chemotherapy for his myeloma. His medications are unchanged from prior. PROBLEMS: 1. Nonoliguric renal failure in the setting of recently diagnosed myeloma. Patient remains dialysis dependent and continues with three times a week dialysis treatments. His electrolytes and volume status are acceptable. He is tolerating hemodialysis without any issues. He continues with the dialysis via PermaCath. He is status post vein mapping and we will pursue fistula creation as an outpatient if he does not have recovery of renal function with treatment of the myeloma. Once the patient has dialysis arranged as an outpatient, he can be discharged to follow-up in the nephrology office. 2. Anemia/pancytopenia. Patient continues on Aranesp with dialysis and receives transfusions as needed. Today he received 200 mcg of Aranesp and we will continue with weekly administration thereof. His pancytopenia is likely related to underlying myeloma and management of the leukopenia and thrombocytopenia is as per hematology/oncology.
[2018-09-02 07:25] LABS: HEMATOCRIT 28.3 % (42.0-52.0); HEMOGLOBIN 9.2 g/dl (13.5-17.5); MEAN CORPUSCULAR HEMOGLOBIN 32.2 pg (27.0-33.0); MEAN CORPUSCULAR HGB CONC 32.5 g/dl (32.0-36.5); PLATELET COUNT, AUTOMATED 103 10^3/uL (150-450); RED BLOOD COUNT 2.86 10^6/uL (4.30-6.10); WHITE BLOOD COUNT 5.5 10^3/uL (4.0-10.0)
[2018-09-02 07:59] LABS: CALCIUM LEVEL 9.6 MG/DL (8.8-10.2); CREATININE FOR GFR 3.43 MG/DL (0.70-1.30); GLOMERULAR FILTRATION RATE 19.4 (>49)
--- NOTE | 2018-09-02 08:20 | IPN ---
DATE: 09/02/2018 No change in Prosper's status. Prosper is seen on [address]. Really no change in status. He is waiting to get a chair at dialysis. PHYSICAL EXAMINATION: Vital signs stable. Lungs clear. Heart regular rhythm. Abdomen soft, nontender. Labs show no significant findings. PLAN: Waiting for Patient Family Services (PFS) to make final arrangements for discharge.
[2018-09-02 14:00] VITALS: BP 128/72
--- NOTE | 2018-09-02 14:24 | IPN ---
DATE: 09/02/2018 SUBJECTIVE: Patient was seen and examined this morning. He denies any acute events overnight. He apparently has no new complaints. He has been receiving dialysis Tuesday, Tuesday, Tuesday, which he has been tolerating well. He is currently awaiting arrangements for outpatient hemodialysis. OBJECTIVE: VITAL SIGNS: Temperature 97.6, pulse 64, respiratory rate 18, blood pressure 130/73, pulse oximetry 95% on room air. GENERAL: Patient is awake, alert and oriented. He does not appear in any acute distress. He is sitting comfortably in a chair in his room. HEENT: Eyes are nonicteric. Trachea is midline. Mucous membranes are pink and moist. Neck is supple. No jugular venous distention. Patient has a tunneled hemodialysis catheter present in the right chest wall. CARDIOVASCULAR: Normal S1, S2. Regular rate and rhythm. No clicks, rubs or murmurs. PULMONARY: Lungs are clear to auscultation bilaterally. There are no wheezes, rhonchi or rales. ABDOMEN: Soft, nontender to palpation. Nondistended. Positive bowel sounds throughout all four quadrants. EXTREMITIES: No clubbing or cyanosis. No edema. PSYCHIATRIC: Mood and affect appear appropriate. LABORATORY DATA: Hematology: White blood cell count 5.5, hemoglobin 9.2, hematocrit 20.3, platelet count 103. Chemistries: Sodium 141, potassium 4.0, chloride 107, carbon dioxide 27, BUN 34, creatinine 3.43, fasting glucose 122, calcium 9.6. ASSESSMENT AND PLAN: 1. Nonoliguric renal failure in the setting of recently diagnosed multiple myeloma: Patient is currently dialysis-dependent. He receives dialysis Tuesday, Tuesday, Tuesday. His next dialysis is on Tuesday. His electrolytes and volume status have remained acceptable. He has been tolerating dialysis well. He has a right chest wall PermaCath. He has had vein mapping for a possible fistula creation in the future. His labs currently do not show any sign of renal recovery. He will have to have arrangements placed for outpatient dialysis. Will continue to monitor his labs weekly upon discharge for renal recovery. If he does not show improvements, he will likely have to remain on dialysis, in which case he will have fistula creation. 2. Anemia/pancytopenia: Patient continues to receive Aranesp with his dialysis. He receives transfusions as needed. He had received 200 mcg Aranesp yesterday. His pancytopenia is likely related to his myeloma, which is managed per hematology/oncology. MTDD
[2018-09-02] MEDS ORDERED: SENOKOT S TAB PO PRN (18:15)
[2018-09-02] MEDS ORDERED: MIRALAX *UNIT DOSE* 17GM PACKET PO PRN (18:15)
[2018-09-02 22:00] VITALS: BP 125/69
[2018-09-03 06:00] VITALS: BP 120/68
[2018-09-03 07:45] LABS: HEMATOCRIT 27.8 % (42.0-52.0); MEAN CORPUSCULAR HEMOGLOBIN 32.7 pg (27.0-33.0); MEAN CORPUSCULAR HGB CONC 32.4 g/dl (32.0-36.5); MEAN CORPUSCULAR VOLUME 101.1 fl (80.0-96.0); RED BLOOD COUNT 2.75 10^6/uL (4.30-6.10); WHITE BLOOD COUNT 5.6 10^3/uL (4.0-10.0)
[2018-09-03 07:47] LABS: PLATELET COUNT, AUTOMATED 96 10^3/uL (150-450)
[2018-09-03 14:00] VITALS: BP 115/67
[2018-09-03 22:00] VITALS: BP_SYST 108; BP_SYST 98; BP_DIAS 51; BP_DIAS 52
[2018-09-04 05:15] VITALS: BP 131/75
[2018-09-04 06:00] VITALS: BP 131/75
--- NOTE | 2018-09-04 07:44 | IPN ---
DATE: 09/03/2018 Prosper was seen today. He is really just here waiting to be discharged once patient and family services (PFS) gets back tomorrow and finalizes arrangements for him to start dialysis. His myeloma is going to be treated as an outpatient as well. Hopefully, he will be ready for discharge tomorrow.
[2018-09-04 10:17] LABS: HEMATOCRIT 28.7 % (42.0-52.0); HEMOGLOBIN 9.3 g/dl (13.5-17.5); MEAN CORPUSCULAR HEMOGLOBIN 32.9 pg (27.0-33.0); MEAN CORPUSCULAR HGB CONC 32.4 g/dl (32.0-36.5); MEAN CORPUSCULAR VOLUME 101.4 fl (80.0-96.0); PLATELET COUNT, AUTOMATED 119 10^3/uL (150-450); RED BLOOD COUNT 2.83 10^6/uL (4.30-6.10); WHITE BLOOD COUNT 5.9 10^3/uL (4.0-10.0)
[2018-09-04 10:37] LABS: LYMPHOCYTES 30 % (16-52); MONOCYTES 3 % (0-8); NEUTROPHILS 67 % (35-75); PLATELET ESTIMATE NORMAL (NORMAL)
[2018-09-04 10:42] LABS: ALBUMIN 2.9 GM/DL (3.2-5.2); CALCIUM LEVEL 9.5 MG/DL (8.8-10.2); CREATININE FOR GFR 5.05 MG/DL (0.70-1.30); GLOMERULAR FILTRATION RATE 12.4 (>49); PHOSPHORUS LEVEL 4.1 MG/DL (2.5-4.9); POTASSIUM SERUM 3.5 MEQ/L (3.5-5.1)
--- NOTE | 2018-09-04 11:56 | IPN ---
DATE: 09/04/2018 Prosper is feeling well. He began dialysis today. Discharge is planned for tomorrow (he cannot be discharged on the day of dialysis for Medicare). Patient and family services (PFS) is still working on getting him a chair on the dialysis unit. He feels well. He is walking 2 miles a day here. PHYSICAL EXAMINATION: 139/75, pulse 87, respiratory rate 18, 98% oxygen saturation. General appearance: Alert and conversant, no distress. He looks much better than a week ago. Lungs clear. Heart regular rhythm. Abdomen soft, nontender. No peripheral edema. No lymphadenopathy. LABS: White count 5.9, hemoglobin 9.3, platelets 119. Sodium 140, potassium 3.5, BUN 70, creatinine 5, glucose 126. IMPRESSION: 1. Nonoliguric renal failure from presumed myeloma of kidney. He is getting three time a week dialysis. He received that today. For PFS he should have all of his arrangements made for ongoing dialysis by tomorrow. 2. Multiple myeloma. Treatment per Dr. Dai. She plans to see him as an outpatient. He has already initiated treatment. 3. Anemia. Iron/transfusion per nephrology.
[2018-09-04] MEDS ORDERED: HEPARIN 1,000 UNITS/ML 10ML VIAL (FOR RADIOLOGY& DIALYSIS ONLY) XX ONE (12:00)
[2018-09-04 14:00] VITALS: BP 114/58
[2018-09-04 15:09] VITALS: BP 114/58
--- NOTE | 2018-09-04 20:41 | IPN ---
DATE: 09/03/2018 SUBJECTIVE: The patient was seen and examined at the bedside today morning. He is afebrile, hemodynamically stable. He denies any active complaints. The patient is fully mobile and he is getting regular chemotherapy for multiple myeloma. OBJECTIVE: VITAL SIGNS: Temperature is 97.5 degrees Fahrenheit, blood pressure 120/68, pulse is 60, respiratory rate of 16, saturating 97% on room air. INTAKE AND OUTPUT: Urine output recorded is 625 mL. Weight in the bed scale is not available. PHYSICAL EXAMINATION: GENERAL: The patient is awake, alert, oriented times three, laying in bed in no apparent distress. HEAD AND NECK EXAM: Extraocular muscles intact. Pupils equally round and reactive to light. Mucous membranes are moist. Neck is supple. There is no JVD. CARDIOVASCULAR: S1, S2, regular rate. No murmur, rub, or gallop. RESPIRATORY: Chest is clear to auscultation bilaterally. Bilateral equal air entry. No rales or rhonchi. ABDOMEN: Soft. Positive bowel sounds. Nontender. No organomegaly. MUSCULOSKELETAL: No clubbing or cyanosis. Pulses are 2+. [employer]: No focal deficit, power is 5/5 in all extremities. LABORATORY REVIEW: CBC showed a WBC of 5.6, hemoglobin is 9, platelets are 96. BMP showed sodium 141, potassium is 4, chloride 107, bicarbonate 27, BUN 34, creatinine 3.4. CURRENT INPATIENT MEDICATIONS: The patient's medications were all reviewed by me. He is on Decadron, Aranesp and MiraLAX. No other change in medications today as compared with yesterday. ASSESSMENT/PLAN: 1. Acute renal failure. It is secondary to multiple myeloma. The patient is dialysis dependent. His regular days are Tuesday, Tuesday, Tuesday. Next hemodialysis will be done tomorrow morning. 2. Anemia secondary to renal failure and multiple myeloma. Hemoglobin latest is 9. The patient is getting Aranesp 200 mcg with dialysis. No need of blood transfusion at this time. 3. Multiple myeloma. The patient is being seen by Hematology/Oncology. The patient is currently on bortezomib therapy. DISPOSITION: The patient is pending placement as outpatient for hemodialysis. Otherwise he is optimized from a nephrology standpoint and from Hematology/Oncology for discharge home.
[2018-09-04 22:03] VITALS: BP 111/58
[2018-09-05 05:36] VITALS: BP 109/60
[2018-09-05] MEDS ORDERED: SENN-52 PO (12:27)
--- NOTE | 2018-09-05 12:42 | IPNPDOC ---
Date Seen The patient was seen on 09/05/18. Progress Note SUBJECTIVE: Patient was seen and examined this morning. He currently has no new complaints. There have been no adverse events reported overnight. The patient is to receive chemotherapy today before discharge. Outpatient arrangements for Hemodialysis Tuesday and Tuesday at 5pm at the dialysis center have been arranged. OBJECTIVE PHYSICAL EXAMINATION: VITAL SIGNS: Please see below. GENERAL: awake, alert, and oriented. He does not appear in any acute distress. He is walking in the hallway outside of his room HEENT: Normocephalic. eyes are anicteric. trachea is midline. No jugular venous distension noted CARDIOVASCULAR: Normal S1, S2. Regular rate and rhythm. No clicks, rubs, or murmurs. Right chest wall tunneled hemodialysis catheter RESPIRATORY: Clear to auscultation bilaterally. No wheezes, rhonci, or rales ABDOMINAL: Nondistended, nontender to palpation throughout. Positive bowel sounds EXTREMITIES: No edema in lower extremities. NEUROLOGICAL: No focal neuro;logical deficits noted PSYCHOLOGICAL: Mood and affect appear appropriate LABORATORY DATA, IMAGING STUDIES, MICROBIOLOGY: Please see below. . Assessment and Plan: 1. Nonoliguric renal failure in the setting of recently diagnosed multiple myeloma: Patient continues to be dialysis dependent. He has received dialysis yesterday. Patient has had mapping for possible fistula creation in future. He currently has a tunneled right chest wall hemodialysis catheter in place. Patient is planned for discharge today. He has outpatient dialysis arranged for Tuesday, Tuesday, Tuesday at 5pm. Plan is to monitor patients renal function weekly. If he does not show any signs of renal recovery fistula creation will be considered 2. [Anemia/Pancytopenia: Patient will continue to receive Arnasep weekly with dialysis. His pancytopenia is likely secondary to his multiple myeloma. Patient will follow with hematology/oncology for further treatment outpatient DISPOSITION: Patient is to be discharged today with outpatient follow-up with Nephrology. He is to continue outpatient dialysis. He is scheduled Tuesday, Tuesday, Tuesday at 5pm at the dialysis center VS, I&O, 24H, Fishbone Vital Signs/I&O Vital Signs Date Time Temp Pulse Resp B/P (MAP) Pulse Ox O2 Delivery O2 Flow Rate FiO2 09/05/18 05:36 98.2 65 20 109/60 (76) 96 I&O- Last 24 Hours up to 6 AM 09/05/18 05:59 Intake Total 2020 ml Output Total 4470 ml Balance -2450 ml GME ATTESTATION GME ATTESTATION My faculty preceptor for this patient encounter was physically present during the encounter and was fully available. All aspects of the patient interview, examination, medical decision making process, and medical care plan development were reviewed and approved by the faculty preceptor. The faculty preceptor is aware and concurs with the plan as stated in the body of this note and will attest to such by his/her cosignature. YANIQUE DAVIS DO Sep 05, 2018 12:41
[2018-09-05 14:00] VITALS: BP 114/64
[2018-09-05] MEDS ORDERED: BORTEZOMIB for SC use (VELCADE) SC ONE (14:00)
--- NOTE | 2018-09-05 15:03 | IPN ---
DATE: 09/04/2018 SUBJECTIVE: Patient was seen and examined this morning in the dialysis unit. He is currently receiving hemodialysis through his right chest wall hemodialysis catheter. There have been no events reported overnight. He currently has no new complaints. He is continued on his Tuesday, Tuesday, Tuesday schedule. Plan is for patient to have dialysis set up by tomorrow as an outpatient, at which point he can be discharged with followup. OBJECTIVE: VITAL SIGNS: Temperature 98.1, pulse 61, respiratory rate 18, blood pressure 108/52, pulse oximetry 94% on room air. GENERAL: Patient is awake, he is alert and he is oriented. He is currently receiving hemodialysis through his right chest wall catheter. He is lying comfortably in bed. He does not appear in any acute distress. HEENT: The patient's eyes are nonicteric. His trachea is midline. Mucous membranes are pink and moist. Neck is supple. There is no jugular venous vein distention noted. He has a tunneled hemodialysis catheter present in his right chest wall. CARDIOVASCULAR: Normal S1, S2. Regular rate and rhythm. No clicks, rubs or murmurs auscultated. PULMONARY: Lungs are clear to auscultation bilaterally. No wheezes, rhonchi or rales. ABDOMINAL: Soft, nontender to palpation. Nondistended. Positive bowel sounds throughout. EXTREMITIES: No clubbing or cyanosis. No lower extremity edema. PSYCHIATRIC: Mood and affect appear appropriate. LABORATORY DATA: Hematology: White blood cells 5.9, hemoglobin 9.3, hematocrit 28.7, platelet count 119. Chemistries: Sodium 140, potassium 3.5, chloride 106, carbon dioxide 26, BUN 70, creatinine 5.05, fasting glucose 126, calcium 9.5, phosphorous 4.1. ASSESSMENT AND PLAN: 1. Nonoliguric renal failure in the setting of recent diagnosed multiple myeloma. Patient is currently hemodialysis dependent. He is receiving hemodialysis today per his normal Tuesday, Tuesday, Tuesday schedule. He has approximately 500 mL removed today. He has stated that he feels like he is urinating more. His next dialysis will be Tuesday. His electrolytes and volume status remain acceptable. He continues to have a right chest wall PermaCath. As stated previously, he has had his vein mapping for a fistula creation in the future. As his current labs did not show sign of renal recovery, he is currently pending arrangement for outpatient dialysis at which point, once he is discharged, he can have his labs monitored weekly for renal recovery. In the future, if the patient does not show renal recovery, he will likely have a fistula creation. 2. Anemia/pancytopenia. Patient currently receives Aranesp with his dialysis. He is receiving transfusions as needed. He is likely anemic and pancytopenic secondary to his myeloma, which is managed by hematology/oncology. Will continue to monitor. MTDD
--- NOTE | 2018-09-05 15:37 | ONC.PHACK ---
CHEMO ADMIN CHECKLIST Order Contains Pt ID: Name, Order on Chemo Order Form?: Yes Order Form Includes ALL: Correct Tx Day, Correct Date, Correct Cycle Number Pt ID on Order form Matches: Pt ID on PHA Label Med on Chemo OrderForm Matches: PHA Label, Med Used for Preparation [facility] Sep 05, 2018 15:37
--- NOTE | 2018-09-06 06:48 | DS.PDOC ---
Discharge Summary General Date of Admission Aug 17, 2018 at 17:34 Date of Discharge 09/05/18 Attending Physician: CLAYTON PRATT MD Specialist/Consultants Involve: A Specialist/Consultants Involve heme/onc, nephrology Discharge Summary PROCEDURES PERFORMED DURING STAY: None. ADMITTING DIAGNOSES: 1. Symptomatic anemia 2. RUFINO DISCHARGE DIAGNOSES: 1. Nonoliguric renal failure from presumed myeloma of kidney 2. Multiple myeloma. 3. Anemia. COMPLICATIONS/CHIEF COMPLAINT: Anemia. HISTORY OF PRESENT ILLNESS: As per admission H&P: "Pt is 63 y/o M with no known PMHx, does not see any PCP on a regular basis, not on any medications presented to ED due to progressively worsening generalized weakness and malaise. 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 Recently he has noticed that he is getting fatigued with less exertion than before. Denies any dyspnea associated with fatigue. Denies any chest pain or episode of syncope. Pt reports poor po intake for the last four weeks. Pt has lost weight sec to not eating well due to decreased appetite. He denies any change in BM, denies any episode of blood per rectum or hematemesis. Pt denies any Hx of cardiac, pulmonary or GI disease. Has not seen doctor for many years. ED Course: CBC reveals Hg 6, type and cross matched, receiving 2 unit PRBC transfusion. CXR unremarkable. LFT unremarkable. TSH Lipase WNL. BMP now resulted Cr 12" HOSPITAL COURSE: Patient initially hydrated, Given two units PRBCs and found to have sigmoid mass. Tunneled dialysis catheter placed and patient placed on dialysis. The patient did have multiple myeloma workup, including kappa chains, which demonstrated elevated free kappa light chains and free kappa lambda ratio, as well as elevated immunoglobulins suspected of multiple myeloma. Patient found to have multiple myeloma by bone marrow biopsy and kidney disease thought to be myeloma kidney. Patient started on chemotherapy as per oncology. Plan to dialyze patient as outpatient and look for renal recovery. If no renal recovery. Plan to place a fistula for permanent dialysis. Patient seen and examined at discharge, patient felt to be stable. Patient denies any fevers, chills, chest pain, difficulty breathing, nausea, vomiting, diarrhea, leg pain or swelling. DISCHARGE MEDICATIONS: Please see below. ALLERGIES: Please see below. PHYSICAL EXAMINATION ON DISCHARGE: VITAL SIGNS: Please see below. GENERAL: Ambulatory walking around room, no distress CARDIOVASCULAR EXAMINATION: RRR. Normal S1 and S2 RESPIRATORY EXAMINATION: Clear to auscultation bilaterally ABDOMINAL EXAMINATION:, Soft, nontender, nondistended EXTREMITIES:. No edema. Intact distal pulses SKIN: No rash or skin breakdown NEUROLOGICAL EXAMINATION:. No focal deficits appreciated PSYCHIATRIC EXAMINATION: Normal mental status. A & O 3 LABORATORY DATA: Please see below. ACTIVITY: As tolerated. DIET: Regular DISCHARGE PLAN: Home with oncology and nephrology follow-up DISPOSITION: Home, Self-Care. DISCHARGE INSTRUCTIONS: 1. Please follow-up with her oncologist for ongoing chemotherapy treatment. 2. Please follow with nephrology for ongoing dialysis and renal monitoring ITEMS TO FOLLOWUP ON ON OUTPATIENT: None DISCHARGE CONDITION: Stable. TIME SPENT ON DISCHARGE: 35 minutes. Vital Signs/I&Os Vital Signs Date Time Temp Pulse Resp B/P (MAP) Pulse Ox O2 Delivery O2 Flow Rate FiO2 09/05/18 14:00 97.7 66 20 114/64 (81) 98 I&O- Last 24 Hours up to 6 AM 09/06/18 05:59 Intake Total 300 ml Output Total 650 ml Balance -350 ml Discharge Medications Scheduled PRN Sennosides/Docusate Sodium (Senna Plus Tablet) 1 Each Tablet, 1 TAB PO BIDP PRN for CONSTIPATION Allergies Coded Allergies: No Known Allergies (Unverified , 08/17/18) CLAYTON PRATT MD Sep 06, 2018 06:48
== END 2018-09-05 15:45 | disposition home or self-care (01) | DRG 691 ==
LOC: M ED 09:15 → UNDOADMOB 12:27 → M ED INP 12:27 → M MS5PR 12:27 → M ED INP 14:55 → M MS5PR 14:55 → INTOOBSV 17:34 → OBSVTOIN 17:34 → M MS5PR 08-25 10:33
PROVIDERS: ADMIT Hospitalist; ATTEND Internal Medicine
PROC: 30233N1 Transfusion of Nonautologous Red Blood Cells into Peripheral Vein, Percutaneous Approach (ICD-10-PCS; 2018-08-17)
PROC: 0JH63XZ Insertion of Tunneled Vascular Access Device into Chest Subcutaneous Tissue and Fascia, Percutaneous Approach (ICD-10-PCS; 2018-08-18)
PROC: 02HV33Z Insertion of Infusion Device into Superior Vena Cava, Percutaneous Approach (ICD-10-PCS; principal; 2018-08-18 13:00)
PROC: 5A1D70Z Performance of Urinary Filtration, Intermittent, Less than 6 Hours Per Day (ICD-10-PCS; 2018-08-19)
DX: C90.00 Multiple myeloma not having achieved remission (principal); D61.818 Other pancytopenia; N17.9 Acute kidney failure, unspecified; E87.2 Acidosis; N18.6 End stage renal disease; E87.1 Hypo-osmolality and hyponatremia; E83.51 Hypocalcemia; E83.39 Other disorders of phosphorus metabolism; F17.200 Nicotine dependence, unspecified, uncomplicated; D63.1 Anemia in chronic kidney disease

== ENCOUNTER → 2018-10-03 | Outpatient (REF) | payer MEDICAID ==
[~2018-10-03] MED LIST: DEXA4TA PO; PROT20TA11 PO; REVL25CA PO; SENN-52 PO
== END ==
LOC: M LAB REF 19:12
PROVIDERS: ATTEND Surgery
DX: E85.9 Amyloidosis, unspecified (principal)

== ENCOUNTER → 2018-10-05 | Outpatient (CLI) | payer MEDICAID | LOC: M LAB 11:31 | PROVIDERS: ATTEND Internal Medicine Nephrology | DX: D64.9 Anemia, unspecified (principal) ==

== ENCOUNTER 2018-10-06 10:57 | Outpatient (CLI) | payer MEDICAID ==
[~2018-10-06] VITALS: Ht 180.3 cm; Wt 88.3 kg
[2018-10-06] VITALS (8 sets, daily range): BP systolic 109–127; BP diastolic 55–65
== END 2018-10-06 16:00 | disposition home or self-care (01) ==
LOC: M INFU 10:57
PROVIDERS: ATTEND Internal Medicine Nephrology
DX: N18.9 Chronic kidney disease, unspecified (principal); D63.1 Anemia in chronic kidney disease
CPT/HCPCS: 36430; P9016

== ENCOUNTER 2018-10-13 12:02 | Outpatient (CLI) | payer MEDICAID, OTHER ==
[2018-10-13] VITALS (9 sets, daily range): BP systolic 112–128; BP diastolic 55–65
[~2018-10-13] VITALS: Ht 180.3 cm; Wt 89.9 kg
[2018-10-13] MEDS ORDERED: ACETAMINOPHEN TAB 650MG DOSE (2X325MG) PO ONE (13:00)
[2018-10-13] MEDS ORDERED: diphenhydrAMINE 25 MG CAP PO ONE (13:00)
== END 2018-10-13 16:35 | disposition home or self-care (01) ==
LOC: M INFU 12:02
PROVIDERS: ATTEND Internal Medicine Hematology & Oncology
DX: D64.9 Anemia, unspecified (principal)
CPT/HCPCS: 36430; P9016

== ENCOUNTER → 2018-11-02 | Outpatient (CLI) | payer MEDICAID ==
[~2018-11-02] MED LIST changes: +CYCL1CAP2 PO; +ONDA8TAB7 PO; +OXYC-517 PO; +SENO8.6T10 PO
== END ==
LOC: M LAB 13:59
PROVIDERS: ATTEND Internal Medicine Nephrology
DX: D64.9 Anemia, unspecified (principal)

== ENCOUNTER 2018-11-03 06:56 | Outpatient (CLI) | payer OTHER ==
[~2018-11-03] VITALS: Ht 180.3 cm; Wt 81.8 kg
[2018-11-03] VITALS (10 sets, daily range): BP systolic 105–127; BP diastolic 57–70
[~2018-11-03 06:56] MED LIST changes: -ONDA8TAB7 PO
[2018-11-03] MEDS ORDERED: ONDA8TAB7 PO (14:38)
--- NOTE | 2018-11-06 14:16 | MEDONC ---
HEMATOLOGY/ONCOLOGY PROGRESS NOTE DATE OF SERVICE: 11/03/2018 The patient is here today on followup and evaluation of his light chain multiple myeloma. The patient had been started on Cytoxan therapy and is now currently on Velcade, dexamethasone. He has had his Velcade held due to thrombocytopenia and neutropenia. The patient initially had a drop in his light chains down to 27,000 but then did go back up again. His light chains had increased slightly just before he had gone on the Revlimid. He has now been off the Revlimid for about a week and has been on the Cytoxan for 1 week. His past medical, surgical and family history have remained unchanged since his initial date of service of 09/22/2018. He has had no mouth sores. PLAN: Continue with the Cytoxan, hold Velcade this week. The patient will be getting the Velcade next week if his ANC and platelets fall within parameters, and he will be going to [facility] for a second opinion regarding management of his light chain disease. The patient continues on dialysis. Unreviewed DD: Janae Dai MD 11/03/2018 04:14 P DT: sruthi 11/06/2018 02:15 P CC:
== END 2018-11-03 12:00 | disposition home or self-care (01) ==
LOC: M INFU 06:56
PROVIDERS: ATTEND Internal Medicine Nephrology
DX: D64.9 Anemia, unspecified (principal)
CPT/HCPCS: 36430; P9016

== ENCOUNTER → 2018-11-16 | Outpatient (CLI) | payer OTHER, MEDICAID ==
[~2018-11-16] MED LIST changes: +AMBI5TAB PO; +ONDA8TAB7 PO
== END ==
LOC: M LAB 11:09
PROVIDERS: ATTEND Internal Medicine Nephrology
DX: D64.9 Anemia, unspecified (principal)

== ENCOUNTER 2018-11-17 11:46 | Outpatient (CLI) | payer OTHER ==
[~2018-11-17] VITALS: Ht 180.3 cm; Wt 78.8 kg
[2018-11-17] VITALS (7 sets, daily range): BP systolic 110–131; BP diastolic 55–86
[~2018-11-17 11:46] MED LIST changes: -AMBI5TAB PO; +ONDA8TAB10 PO; -ONDA8TAB7 PO; +diphenhydrAMINE 25 MG CAP PO SCH
[2018-11-17] MEDS ORDERED: ACETAMINOPHEN 325 MG TAB PO ONE (12:15)
[2018-11-24] MEDS ORDERED: REVL25CA PO ×2 (11:19→12:12)
[2018-11-24] MEDS ORDERED: AMBI5TAB PO (12:12)
[2018-11-24] MEDS ORDERED: DEXA4TA PO (12:14)
[2018-11-30] MEDS ORDERED: DEXA4TA PO (16:04)
[2018-12-19] MEDS ORDERED: REVL25CA PO ×2 (08:16→08:22)
[2018-12-26] MEDS ORDERED: REVL25CA PO (08:29)
[2019-01-23] MEDS ORDERED: REVL25CA PO (13:52)
[2019-02-21] MEDS ORDERED: REVL25CA PO (15:42)
== END 2018-11-17 16:30 | disposition home or self-care (01) ==
LOC: M INFU 11:46
PROVIDERS: ATTEND Internal Medicine Nephrology
DX: D64.9 Anemia, unspecified (principal)
CPT/HCPCS: 36430; P9016

== ENCOUNTER → 2018-11-30 | Outpatient (CLI) | payer OTHER ==
[~2018-11-30] MED LIST changes: +AMBI5TAB PO; -ONDA8TAB10 PO; +ONDA8TAB7 PO; -diphenhydrAMINE 25 MG CAP PO SCH
--- NOTE | 2018-11-30 09:54 | REP ---
MRI thoracolumbar spine: 11/30/2018. Indication: Thoracolumbar pain. History of multiple myeloma. Comparison: None. Technique: Multiplanar short and long TR sequences of the thoracolumbar spine were performed without IV Gadolinium. Findings: Marrow signal is diffusely heterogeneous with the more focal area of diminished T1 and elevated T2 signal within the left transverse process of T5. Multiple chronic compression deformities are present at T10, T11, T12, L1, L2 , L3 and L5 with the most prominent compression at L3. No areas of significant posterior cortex retropulsion are present. The spinal canal is widely patent. No abnormal cord signal is present. Impression: Diffuse abnormal marrow signal consistent with the provided diagnosis of multiple myeloma. However, there is a more focal area of abnormal signal within the left transverse process of T5. Additional metastatic process in this region is not excluded. Multiple chronic compression deformities without retropulsion of fracture fragments into the spinal canal. There are no areas of significant spinal canal narrowing. Electronically Signed by Turner Goldberg DO 11/30/2018 09:46 A
--- NOTE | 2018-11-30 09:57 | REP ---
Please refer to accession number [id number] - 0001 report as the studies were dictated together. Electronically Signed by Turner Goldberg DO 11/30/2018 09:48 A
== END ==
LOC: M RAD 06:20
PROVIDERS: ATTEND Internal Medicine Hematology & Oncology
DX: M43.8X4 Other specified deforming dorsopathies, thoracic region (principal); C90.00 Multiple myeloma not having achieved remission

== ENCOUNTER 2018-12-21 06:55 | Outpatient (CLI) | payer MEDICAID, OTHER ==
[2018-12-21] VITALS (9 sets, daily range): BP systolic 116–160; BP diastolic 60–94
[~2018-12-21] VITALS: Ht 177.8 cm; Wt 80.6 kg
[2018-12-21] MEDS ORDERED: diphenhydrAMINE 25 MG CAP PO SCH (07:00)
[2018-12-21] MEDS ORDERED: ACETAMINOPHEN TAB 650MG DOSE (2X325MG) PO SCH (07:01)
== END 2018-12-21 12:35 | disposition home or self-care (01) ==
LOC: M INFU 06:55
PROVIDERS: ATTEND Internal Medicine Hematology & Oncology
DX: D64.9 Anemia, unspecified (principal); C90.00 Multiple myeloma not having achieved remission
CPT/HCPCS: 36430; P9040

== ENCOUNTER 2019-01-10 11:35 | Outpatient (CLI) | payer OTHER ==
[~2019-01-10] VITALS: Ht 188 cm; Wt 80.2 kg
[2019-01-10] VITALS (10 sets, daily range): BP systolic 116–134; BP diastolic 64–81
[2019-01-10] MEDS ORDERED: ACETAMINOPHEN TAB 650MG DOSE (2X325MG) PO ONE (12:00)
[2019-01-10] MEDS ORDERED: diphenhydrAMINE 50 MG CAP PO ONE (12:00)
[2019-01-10] MEDS ORDERED: QC A650T3 PO (12:02)
== END 2019-01-10 16:45 | disposition home or self-care (01) ==
LOC: M INFU 11:35
PROVIDERS: ATTEND Internal Medicine Hematology & Oncology
DX: D64.9 Anemia, unspecified (principal); D70.9 Neutropenia, unspecified; C90.00 Multiple myeloma not having achieved remission; Z99.2 Dependence on renal dialysis
CPT/HCPCS: 36430; P9016